=== PATIENT | female | born 1985 | race Caucasian/White ===

== ENCOUNTER 2020-04-11 15:11 | Observation (INO) | payer OTHER, SELFPAY ==
--- NOTE | ~2020-04-11 | CT_ITS ---
EXAMINATION: CT abdomen pelvis w con EXAM DATE: 04/11/2020 16:27 INDICATION: Epigastric pain. TECHNIQUE: Spiral CT of the abdomen and pelvis was performed following intravenous injection of 100 m L Omnipaque 350. Axial, coronal and sagittal images were reviewed. The dose-length product (DLP) fo r this examination was 261.43 mGy-cm. The exposure was tailored according to patient size (auto mA e xposure control), and iterative reconstruction (ASIR) was used as additional dose reduction technique . There is no prior study for comparison. FINDINGS: There are multiple large stones within the appendix, measuring up to about 12 mm in size. T he appendix is severely distended up to 1.6 cm in diameter. Tip of the appendix is just deep to the r ight inguinal canal for clinical correlation. Small amount of adjacent fluid. Small amount of The liver, spleen, adrenal glands and pancreas are unremarkable. Gallbladder is unremarkable. No bi liary obstruction. Portal and splenic veins are patent. Kidneys enhance symmetrically. There is no hydronephrosis. Uterus is anteverted and unremarkable. There is a 5.5 cm cystic right ovarian les ion most likely hemorrhagic cyst. A follow-up pelvic sonogram should be obtained to exclude less like ly possibility of endometrioma or cystic ovarian neoplasm. The bladder is unremarkable. There is no retroperitoneal or pelvic lymphadenopathy. The stomach and small bowel are unremarkable. There is expected amount of colonic stool. No free intraperitoneal gas. The heart is normal in size. There are no pericardial or pleural effusions. The lung bases are unremarkable. There are no osteoblastic or osteolytic lesions identified. IMPRESSION: 1. Multiple large appendicoliths, and severely distended appendix with small amount of adjacent fluid . Probably acute appendicitis, please clinically correlate. 2. Right adnexal cystic lesion most likely hemorrhagic cyst but a 6 week follow-up pelvic sonogram as indicated. Reviewed, dictated and finalized at location A. [employer] IMPRESSION: 1. Multiple large appendicoliths, and severely distended appendix with small am ount of adjacent fluid. Probably acute appendicitis, please clinically correlat e. 2. Right adnexal cystic lesion most likely hemorrhagic cyst but a 6 week follow -up pelvic sonogram as indicated.
[2020-04-11 15:18] VITALS: BP 129/82; PULSE 85; RESP 18; TEMP 36.6; O2SAT 100
[2020-04-11 15:45] LABS: Basophils Percent Auto 0.3 % (0.2-1.2); Eosinophils Absolute Auto 0.1 K/mm3 (0-0.3); Eosinophils Percent Auto 0.9 % (0-4.4); Hematocrit 39.2 % (37.0-47.0); Hemoglobin 13.4 g/dL (12.0-15.0); Immature Granulocyte Absolute 0.02 K/mm3 (0.00-0.031); Immature Granulocyte Percent A 0.3 % (0-0.5); Lymphocytes Absolute Auto 0.92 K/mm3 (0.9-3.2); Lymphocytes Percent Auto 11.7 % (18.3-44.2); Mean Corpuscular HGB Conc 34.2 g/dl (32-36); Mean Corpuscular Volume 87.9 fl (80-100); Mean Platelet Volume 9.3 fl (7.4-10.4); Monocytes Absolute Auto 0.5 K/mm3 (0.1-0.6); Monocytes Percent Auto 5.7 % (2.6-8.5); Neutrophils Absolute Auto 6.4 K/mm3 (1.3-6.7); Neutrophils Percent Auto 81.1 % (45.5-73.1); Platelet Count Result 183 k/mm3 (150-375); Red Blood Count 4.46 M/mm3 (4.2-5.4); Red Cell Distribution Width 12.6 % (11.5-14.5); White Blood Count 7.9 K/mm3 (4.5-10.0)
[2020-04-11 15:54] LABS: Add Urine Microscopic? YES; Appearance Urine Clear (Clear); Bacteria Urine Trace /hpf; Bilirubin Urine Negative (Negative); Blood Urine 1+ (Negative); Color Urine Yellow (Yellow); Glucose Urine UA Negative (Negative); Ketones Urine Negative (Negative); Leukocyte Esterase Ur Negative LEU/UL (Negative); Mucus Urine Few /lpf; Nitrate Urine Negative (Negative); Protein Urine Negative (Negative); Specific Grav Ur 1.023 (1.001-1.035); Squamous Epithelial Cell Urine Few /hpf (Few); Urobilinogen Urine Negative mg/dL (<2.0); WBC Urine 0-3 /hpf
[2020-04-11 15:58] LABS: Alanine Aminotransferase 16 U/L (4-35); Albumin Level 4.8 g/dL (3.5-5.1); Alkaline Phosphatase 41 U/L (38-126); Anion Gap 12 mmol/L (8-16); Aspartate Amino Transferase 25 U/L (14-36); Bilirubin,Total 2.4 mg/dL (0.2-1.3); Blood Urea Nitrogen 21 mg/dL (7-17); Calcium 9.3 mg/dL (8.4-10.2); Carbon Dioxide 26 mmol/L (22-30); Chloride 99 mmol/L (98-107); Estimated CRCL calculation 97 ml/min; Estimated Glomerular Filt Rate > 60; Glucose 118 mg/dL (65-105); Lipase 109 U/L (23-300); Potassium 3.8 mmol/L (3.4-5.0); Sodium 137 mmol/L (137-145)
--- NOTE | 2020-04-11 16:13 | ED.ABDPAIN ---
HPI - Abdominal Pain General Chief Complaint: Abdominal Pain Stated Complaint: upper abd pain, N/V Time Seen by Provider: 04/11/20 15:22 Source: patient Mode of arrival: ambulatory Limitations: no limitations History of Present Illness HPI narrative: Patient is a 34-year-old female who presents with epigastric abdominal pain that began last night persisted into the morning and ultimately presents for evaluation of continued abdominal pain patient tried Gas-X with no improvement patient notes nausea but denies emesis diarrhea urinary symptoms patient denies similar occurrence in the past has not been seen for this complaint presents in no distress does not appear uncomfortable pain is worse with position and activity Related Data Allergies Allergy/AdvReac Type Severity Reaction Status Date / Time No Known Allergies Allergy Verified 04/11/20 17:20 Review of Systems Review of Systems: All systems reviewed & are unremarkable except as noted in HPI and below PMFSH Past Medical History 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 HEAD: Normocephalic, atraumatic. EYES: PERRLA and EOMI. ENT: Nares clear, no rhinorrhea or epistaxis. Mucous membranes moist. CHEST: Clear to auscultation. No respiratory distress. No wheezes rales or rhonchi HEART: Regular rate and rhythm. No murmur heard. Normal peripheral pulses. ABDOMEN: Soft, epigastric tenderness no rebound or guarding, nondistended, normal active bowel sounds. EXTREMITIES: Normal range of motion. No edema. SKIN: Warm, dry, no rash. NEURO: No focal deficits. Alert and oriented x3. PSYCH: Normal mood and affect. Course Course Emergency Course: Patient evaluated in the emergency department found to have acute appendicitis will be placed in hospital the surgery team given antibiotics and fluids and pain medication in the emergency department Consultations Consultation #1: Spoke with Dr. Simmons who has agreed to accept the patient would like Zosyn to be given for antibiotics with n.p.o. status Date: 04/11/20 Time: 17:37 Vital Signs Vital signs: Vital Signs Temperature 97.8 F 04/11/20 15:18 Pulse Rate 85 04/11/20 15:18 Respiratory Rate 18 04/11/20 15:18 Blood Pressure 129/82 04/11/20 15:18 Pulse Oximetry 100 04/11/20 15:18 Temperature 97.8 F 04/11/20 15:18 Pulse Rate 85 04/11/20 17:22 Respiratory Rate 18 04/11/20 17:22 Blood Pressure 130/83 04/11/20 17:22 Pulse Oximetry 99 04/11/20 17:22 MDM - Abdominal Pain MDM Narrative Medical decision making narrative: Patient with acute appendicitis presented to emergency department evaluated hemodynamically stable we placed in hospital the surgical team for reevaluation in the morning Lab Data Result diagrams: 04/11/20 15:34 04/11/20 15:34 Labs: Lab Results 04/11/20 04/11/20 04/11/20 Range/Units 15:34 15:34 15:36 WBC 7.9 (4.5-10.0) K/mm3 RBC 4.46 (4.2-5.4) M/mm3 Hgb 13.4 (12.0-15.0) g/dL Hct 39.2 (37.0-47.0) % MCV 87.9 (80-100) fl MCH 30.0 (26-34) pg MCHC 34.2 (32-36) g/dl RDW 12.6 (11.5-14.5) % Plt Count 183 (150-375) k/mm3 MPV 9.3 (7.4-10.4) fl Immature Gran % (Auto) 0.3 (0-0.5) % Neut % (Auto) 81.1 H (45.5-73.1) % Lymph % (Auto) 11.7 L (18.3-44.2) % [place] % (Auto) 5.7 (2.6-8.5) % Eos % (Auto) 0.9 (0-4.4) % Baso % (Auto) 0.3 (0.2-1.2) % Lymph # (Auto) 0.92 (0.9-3.2) K/mm3 [place] # (Auto) 0.5 (0.1-0.6) K/mm3 Eos # (Auto) 0.1 (0-0.3) K/mm3 Baso # (Auto) 0.0 (0.0-0.1) K/mm3 Abs Immat Gran (auto) 0.02 (0.00-0.031) K/mm3 Absolute Neuts (auto) 6.
[2020-04-11] MEDS: FAMOTIDINE 20 MG/2 ML VIAL IV PUSH ×2 (16:32→20:09)
[2020-04-11] MEDS: LIDOCAINE HCL 2% VISC SOLN 15 ML UDC 20 ML PO (16:32)
[2020-04-11] MEDS: SODIUM CHLORIDE 0.9% IV 1,000 ML 999 ML IV CONT (16:33)
[2020-04-11] MEDS: MAG HYDROX/AL HYDROX/SIMETH 30 ML UDC PO (16:33)
[2020-04-11] MEDS: ONDANSETRON INJ 4 MG/2 ML VIAL IV PUSH ×3 (16:33→21:11)
[2020-04-11 17:22] VITALS: BP 130/83; PULSE 85; RESP 18; O2SAT 99
[2020-04-11] MEDS: MORPHINE SULFATE (*CRX) 4 MG/ML INJ IV PUSH ×2 (17:35→23:13)
--- NOTE | 2020-04-11 18:19 | ADMGEN ---
This patient, Berna Bonilla, was admitted to Medical Room 258-. Patient/family oriented to hospital policies and general routines including ID bracelet, bed and alarms, visiting hours, pain management, procedures, bathroom and other care routines, personal items, smoking policy, room service/diet, and visiting hours. Information on how to activate the Rapid Response Team has been discussed. Patient/Family are encouraged to report perceived risks to care and to ask questions if they do not understand what they are told or what they should do.
[2020-04-11 18:20] VITALS: BP 115/71; PULSE 67; RESP 16; TEMP 36.4; O2SAT 100; BMI 22.0
[2020-04-11] MEDS: LACTATED RINGERS 1,000 ML 125 ML IV CONT (18:58)
[2020-04-11] MEDS: MORPHINE SULFATE (*CRX) 2 MG/ML INJ IV PUSH (19:35)
[2020-04-11 22:00] VITALS: BP 113/65; PULSE 69; RESP 21; TEMP 36.7; O2SAT 100
[2020-04-12] VITALS (17 sets, daily range): BP systolic 98–124; BP diastolic 55–80; PULSE 76–109; RESP 12–21; TEMP 36.4–37.6; O2SAT 96–100
[2020-04-12] MEDS: MORPHINE SULFATE (*CRX) 4 MG/ML INJ IV PUSH ×3 (01:56→09:39)
[2020-04-12] MEDS: LACTATED RINGERS 1,000 ML 125 ML IV CONT (01:57)
[2020-04-12 05:29] LABS: Basophils Percent Auto 0.2 % (0.2-1.2); Hemoglobin 12.1 g/dL (12.0-15.0); Immature Granulocyte Absolute 0.06 K/mm3 (0.00-0.031); Immature Granulocyte Percent A 0.5 % (0-0.5); Lymphocytes Absolute Auto 0.57 K/mm3 (0.9-3.2); Lymphocytes Percent Auto 4.6 % (18.3-44.2); Mean Corpuscular HGB Conc 34.6 g/dl (32-36); Mean Corpuscular Hemoglobin 29.7 pg (26-34); Mean Corpuscular Volume 85.8 fl (80-100); Mean Platelet Volume 9.4 fl (7.4-10.4); Monocytes Absolute Auto 0.6 K/mm3 (0.1-0.6); Monocytes Percent Auto 5.1 % (2.6-8.5); Neutrophils Absolute Auto 11.1 K/mm3 (1.3-6.7); Neutrophils Percent Auto 89.6 % (45.5-73.1); Platelet Count Result 142 k/mm3 (150-375); Red Blood Count 4.08 M/mm3 (4.2-5.4); Red Cell Distribution Width 12.3 % (11.5-14.5); White Blood Count 12.4 K/mm3 (4.5-10.0)
[2020-04-12 05:43] LABS: Alanine Aminotransferase 13 U/L (4-35); Albumin Level 4.2 g/dL (3.5-5.1); Alkaline Phosphatase 44 U/L (38-126); Anion Gap 6 mmol/L (8-16); Aspartate Amino Transferase 18 U/L (14-36); Bilirubin,Total 3.3 mg/dL (0.2-1.3); Blood Urea Nitrogen 13 mg/dL (7-17); Calcium 8.9 mg/dL (8.4-10.2); Carbon Dioxide 27 mmol/L (22-30); Chloride 99 mmol/L (98-107); Estimated CRCL calculation 97 ml/min; Estimated Glomerular Filt Rate > 60; Glucose 116 mg/dL (65-105); Magnesium 1.4 mg/dL (1.6-2.3); Sodium 132 mmol/L (137-145)
[2020-04-12] MEDS: FAMOTIDINE 20 MG/2 ML VIAL IV PUSH (08:34)
[2020-04-12] MEDS: WITCH HAZEL 40 PADS 1 PAD TOPICAL (08:36)
--- NOTE | 2020-04-12 09:21 | PM.IMHP ---
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 She reports 1st noticing epigastric pain day night, 2 nights ago. The pain initially was in the epigastric area and mild. The pain continued to worsen and she developed nausea with vomiting. She has had a total of 6 episodes of vomiting, nonbilious and nonbloody emesis. She then presented to the emergency department for further evaluation of the abdominal pain. She reports that her upper abdominal pain has now localized to the lower abdomen, worse in the right lower quadrant. CT scan of the abdomen and pelvis showed multiple large appendicoliths with a severely distended appendix measuring up to 1.6 cm in diameter, and a small amount of adjacent fluid. Incidentally noted was a right adnexal cystic lesion, most likely hemorrhagic cyst. Initial labs showed a white blood cell count of 7900, but repeat labs this morning showed a white blood cell count of 12,400. Our service was consulted by the ED physician for surgical evaluation of acute appendicitis. The patient was admitted and started on broad-spectrum IV antibiotics and made NPO. She is now being seen on the medical floor. She reports poor appetite over the past few days and constipation. Her last bowel movement was 2 days ago, but she has not been taking her home medications for 2 days. She reports having lower abdominal pain at this time, which has not changed in severity since being admitted. Still reporting nausea. No other complaints at this time. In regards to the patient's history of Enoch-Danlos Syndrome, she reports issues with bleeding with a previous dental procedure, but had no issues with bleeding or healing with her tubal ligation. Review of Systems Review of Systems: All systems reviewed & are unremarkable except as noted in HPI and below Constitutional: Constitutional: Reports as per HPI, Denies chills, Denies fatigue, Denies fever(s), Denies headache(s) and Denies weakness Eyes: Eyes: Reports no additional eye complaints, Denies change in vision, Denies dry eyes and Denies eye pain ENT: Reports system reviewed and no additional complaints, except as documented, Denies dysphagia, Denies dizziness, Denies headache(s) and Denies hearing loss Cardiovascular: Cardiovascular: Reports no additional cardiovascular complaints, Denies chest pain, Reports rapid heart rate (hx of tachycardia, on metoprolol), Denies pedal edema, Denies leg edema, Denies lightheadedness, Denies radiating jaw, neck or arm pain and Denies dyspnea Respiratory: Respiratory: Reports no additional respiratory complaints, Denies cough, Denies hemoptysis, Denies dyspnea and Denies wheezing Gastrointestinal: Gastrointestinal: Reports as per HPI, Reports no additional gastrointestinal complaints, Reports abdominal pain (lower abd), Denies bloating, Denies change in stool character, Reports constipation, Denies dysphagia, Reports nausea, Denies odynophagia, Reports vomiting and Denies hematemesis Genitourinary: Genitourinary: Denies hematuria and Denies dysuria Musculoskeletal: Musculoskeletal: Reports no additional musculoskeletal complaints, Denies abnormal gait, Denies deformity, Denies joint swelling, Denies numbness and Denies tingling Integumentary/Breasts: Skin/Breast: Denies new lesions, Denies rash and Denies wounds Neurologic: Reports system reviewed and no additional complaints, except as documented, Denies abnormal gait, Denies dizziness, Denies headache(s), Denies numbness, Denies tingling, Denies weakness and Reports other (dizziness and syncope upon standing at times) Psychiatric: Psychiatric: Reports no additional psychiatric complaints, Reports anxiety (tx for anxiety) and Reports depression (tx for depression) [facility] Past Medic
[2020-04-12] MEDS: MAGNESIUM SULFATE 3GM/D5W100ML 3 GM/100 ML BAG IVPB (09:26)
[2020-04-12] MEDS: SODIUM CHLORIDE 0.9% IV 1,000 ML 150 ML IV CONT ×2 (09:26→22:21)
[2020-04-12] MEDS: ONDANSETRON INJ 4 MG/2 ML VIAL IV PUSH (09:39)
--- NOTE | 2020-04-12 11:19 | WPDCN ---
Assessment and Plan Assessment and plan (1) Ovarian cyst: Code(s): N83.209 - Unspecified ovarian cyst, unspecified side Status: Acute (2) Abdominal pain: Code(s): R10.9 - Unspecified abdominal pain Status: Acute Assessment and Plan: This patient is a 34-year-old female with a likely appendicitis and a hemorrhagic ovarian cyst. Dr. Simmons has decided to operate on this patient and remove her appendix due to the symptoms and abnormal appearance of the organ. I will join Dr. Simmons to examine the cyst and likely remove the cyst. I discussed the situation with the patient. She would like the cyst removed. This may be contributing to her pain given the blood contained within the cyst. She understands the risks, benefits, and alternatives. She has completed the informed consent process is ready to proceed. HPI Data of Consult Date/Time: 04/12/20 11:19 Requesting Physician: Howie Simmons MD Primary Care Provider: Tereza Newman, Consult Narrative Narrative: Berna Bonilla is a 34 year old female, multi parous, with abdominal pain and ovarian cyst that was viewed on ultrasound. She has had worsening abdominal pain for 2 days. Focus of the pain is in the lower abdomen. She has been seen by General surgery. Findings on ultrasound include a 5-1/2 cm hemorrhagic left ovarian cyst and a distended appendix. Patient symptoms included nausea and vomiting for 2 days. She has an elevated white count. She denies any vaginal bleeding. She is status post tubal ligation. She denies any hormonal contraception. Review of Systems Constitutional: Constitutional: Reports no additional constitutional complaints, Denies fatigue, Denies headache(s), Denies lethargy and Denies weakness Eyes: Eyes: Reports no additional eye complaints, Denies blurry vision and Denies photophobia ENT: Reports as per HPI, Denies headache(s) and Denies neck pain Cardiovascular: Cardiovascular: Denies chest pain, Denies diaphoresis, Denies leg edema, Denies palpitations and Denies dyspnea Respiratory: Respiratory: Denies hemoptysis, Denies dyspnea and Denies wheezing Gastrointestinal: Gastrointestinal: Denies abdominal pain, Denies melena, Denies bloating, Denies hematochezia, Denies nausea and Denies vomiting Genitourinary: Genitourinary: Reports no additional female genitourinary complaints Musculoskeletal: Musculoskeletal: Denies joint swelling, Denies neck pain, Denies numbness and Denies stiffness Neurologic: Denies Abnormal speech present, Denies confusion, Denies headache(s), Denies numbness and Denies weakness Psychiatric: Psychiatric: Denies anxiety, Denies confusion, Denies depression, Denies homicidal ideation and Denies suicidal ideation Endocrine: Endocrine: Denies fatigue and Denies palpitations Allergic/Immunologic: Allergic/Immunologic: Denies wheezing PMFSH Past Medical History Medical History Depression with anxiety EDS (Enoch-Danlos syndrome) History of kidney stones Singh disease Surgical History Surgical History History of tonsillectomy History of tubal ligation Laparoscopic History of wisdom tooth extraction Family History Family History Mother Ovarian cancer Hyperlipidemia Gallbladder disease Father Hyperlipidemia Malignant neoplasm of prostate Hypertension Social History Social History Social History: The patient lives at home with her boyfriend and 6 children. She is a stay at home mother. She would like her mother, Josie Bonilla, to be her medical decision maker if needed. Smoking status: Never smoker Second hand tobacco smoke exposure: No Alcohol intake: current Alcohol use details: Rare - few times per year. Substance use: never Living ar
--- NOTE | 2020-04-12 11:37 | PC.NURSE ---
Report called to Reji CRAIG Preop.
--- NOTE | 2020-04-12 13:08 | PC.NURSE ---
TO OR via bed.
[2020-04-12 13:17] LABS: INR 1.3; Prothrombin Time 16.8 Seconds (11.1-14.7)
[2020-04-12 13:18] LABS: Partial Thromboplastin Time 34.6 SECONDS (22.3-36.8)
[2020-04-12 13:21] LABS: Magnesium 2.4 mg/dL (1.6-2.3)
--- NOTE | 2020-04-12 13:28 | WPDANESEPPF ---
Anes - Initial Pre Proc Eval Procedure: Operation Date: 04/12/20 14:30 Proposed Procedures p Laparoscopic Appendectomy - Howie Simmons MD Date/Time: 04/12/20 13:28 Surgeon: Howie Simmons MD Pre Op Diagnosis: acute appendicitis Patient Data Age: 34 Gender: F Height: 1.73 m Weight: 65.7 kg Last Vital Signs Temp 37.4 C 04/12/20 13:17 Pulse 108 H 04/12/20 13:17 Resp 16 04/12/20 13:17 BP 124/73 04/12/20 13:17 Pulse Ox 100 04/12/20 13:17 Allergies Allergy/AdvReac Type Severity Reaction Status Date / Time amoxicillin Allergy Diarrhea Verified 04/11/20 18:30 Home Medications Medication Instructions Recorded Confirmed Type Daily Fiber 1 tab-cap PO BID 04/11/20 04/11/20 History Daily Multiple For Women 1 tab-cap PO DAILY 04/11/20 04/11/20 History amitriptyline 25 mg PO HS 04/11/20 04/11/20 History clonazepam 0.5 mg PO PRN PRN 04/11/20 04/11/20 History ferrous sulfate 65 mg PO BID 04/11/20 04/11/20 History magnesium 400 mg PO DAILY 04/11/20 04/11/20 History meloxicam 15 mg PO DAILY 04/11/20 04/11/20 History metoprolol succinate 25 mg PO DAILY 04/11/20 04/11/20 History Laboratory Tests 04/11/20 04/11/20 04/11/20 15:34 15:34 15:36 WBC 7.9 K/mm3 K/mm3 (4.5-10.0) RBC 4.46 M/mm3 M/mm3 (4.2-5.4) Hgb 13.4 g/dL g/dL (12.0-15.0) Hct 39.2 % % (37.0-47.0) MCV 87.9 fl fl (80-100) MCH 30.0 pg pg (26-34) MCHC 34.2 g/dl g/dl (32-36) RDW 12.6 % % (11.5-14.5) Plt Count 183 k/mm3 k/mm3 (150-375) MPV 9.3 fl fl (7.4-10.4) Immature Gran % (Auto) 0.3 % % (0-0.5) Neut % (Auto) 81.1 % H % (45.5-73.1) Lymph % (Auto) 11.7 % L % (18.3-44.2) [place] % (Auto) 5.7 % % (2.6-8.5) Eos % (Auto) 0.9 % % (0-4.4) Baso % (Auto) 0.3 % % (0.2-1.2) Lymph # (Auto) 0.92 K/mm3 K/mm3 (0.9-3.2) [place] # (Auto) 0.5 K/mm3 K/mm3 (0.1-0.6) Eos # (Auto) 0.1 K/mm3 K/mm3 (0-0.3) Baso # (Auto) 0.0 K/mm3 K/mm3 (0.0-0.1) Abs Immat Gran (auto) 0.02 K/mm3 K/mm3 (0.00-0.031) Absolute Neuts (auto) 6.4 K/mm3 K/mm3 (1.3-6.7) Absolute Nucleated RBC 0.0 K/mm3 K/mm3 (0.0-0.012) Nucleated RBC % 0.0 % % (0.0-0.2) PT INR APTT Sodium 137 mmol/L mmol/L (137-145) Potassium 3.8 mmol/L mmol/L (3.4-5.0) Chloride 99 mmol/L mmol/L (98-107) Carbon Dioxide 26 mmol/L mmol/L (22-30) Anion Gap 12 mmol/L mmol/L (8-16) BUN 21 mg/dL H mg/dL (7-17) Creatinine 0.70 mg/dL mg/dL (0.7-1.0) Estim Creat Clear Calc 97 ml/min ml/min Estimated GFR > 60 (59 - ) Glucose 118 mg/dL H mg/dL (65-105) Calcium 9.3 mg/dL mg/dL (8.4-10.2) Magnesium Total Bilirubin 2.4 mg/dL H mg/dL (0.2-1.3) AST 25 U/L U/L (14-36) ALT 16 U/L U/L (4-35) Alkaline Phosphatase 41 U/L U/L (38-126) Total Protein 8.0 g/dL g/dL (6.3-8.2) Albumin 4.8 g/dL g/dL (3.5-5.1) Lipase 109 U/L U/L (23-300) Urine Color Yellow (Yellow) Urine Appearance Clear (Clear) Urine pH 6.0 (5.0-9.0) Ur Specific [place] 1.023 (1.001-1.035) Urine Protein Negative mg/dL mg/dL (Negative) Urine Glucose (UA) Negative mg/dL mg/dL (Negative) Urine Ketones Negative mg/dL mg/dL (Negative) Ur Blood (Man) 1+ H (Negative) Urine Nitrate Negative (Negative) Urine Bilirubin Negative (Negative) Urine Urobilinogen Negative mg/dL mg/dL (<2.0) Leukocyte Esterase Rfl Negative ALBERT/UL ALBERT/UL (Negative) Urine RBC 6-10 /hpf H /hpf (0-2) Urine WBC 0-3
[2020-04-12] MEDS: LACTATED RINGERS 1,000 ML 30 ML IV CONT ×2 (13:33→16:09)
[2020-04-12] MEDS: fentaNYL CITRATE INJ (*CRX) 100 MCG/2 ML VIAL 50 MCG IV PUSH (13:47)
--- NOTE | 2020-04-12 14:06 | WPDHPUPDATE1 ---
History and Physical Update Update Date/Time: 04/12/20 14:06 History and Physical has been reviewed, including an updated exam of the patient. There are NO changes in the patient's condition. Risks, benefits, and alternatives have been discussed and questions answered. Patient agrees to proceed with procedure.
--- NOTE | 2020-04-12 14:37 | WPDHPUPDATE1 ---
History and Physical Update Update Date/Time: 04/12/20 14:37 To perform right ovarian cystectomy History and Physical has been reviewed, including an updated exam of the patient. There are NO changes in the patient's condition. Risks, benefits, and alternatives have been discussed and questions answered. Patient agrees to proceed with procedure.
[2020-04-12] MEDS: BUPIVACAINE/EPINEPHRINE 0.5% 10 ML VIAL 20 ML INFILTRATE (15:02)
--- NOTE | 2020-04-12 15:30 | SUR.OPER ---
PATIENT ASKED IF POSITION NEEDS TO GO TO LITHOTOMY ARE THERE ANY POSITIONAL OR JOINT CONCERNS. PATIENT STATED NO ISSUE HOWEVER JOINTS MAY MAKE A POP NOISE BUT THIS IS NORMAL FOR HER NOT A DISLOCATION. REVIEWED WITH PATIENT IN PRE OP.
--- NOTE | 2020-04-12 15:44 | SUR.OPER ---
RIGHT OVARIAN CYSTOTOMY PER DR POLLACK UNDER DR OCHOA DIRECTION IN OR. DR RAM CONSULTING.
--- NOTE | 2020-04-12 15:50 | WPDCN ---
HPI Data of Consult Date/Time: 04/12/20 15:50 This is an intraoperative consult. Requesting Physician: Howie Simmons MD Primary Care Provider: Tereza Newman, Consult Narrative Narrative: Berna Bonilla is a 34 year old female with an appendicitis and a ovarian cyst. Dr. Simmons took this patient to the operating room for appendectomy. She had a purulent fluid within the endometrial cavity, viral was to examine the ovarian cyst. I believe the ovary incision should only be drained today. Opening the cyst and removing the capsule along with the corpus luteum cyst would invite adhesions on the ovary which may require surgery in the future. The ovary was enlarged. The ovary appeared to be about 8 cm. There was a 5-6 cm ovarian cyst with serous fluid that was drained out by Dr. Simmons. He open the cyst using cautery and scissors. This was my recommendation. He completed the appendectomy laparoscopically. [facility] Past Medical History Medical History Depression with anxiety EDS (Enoch-Danlos syndrome) History of kidney stones Singh disease Surgical History Surgical History History of tonsillectomy History of tubal ligation Laparoscopic History of wisdom tooth extraction Family History Family History Mother Ovarian cancer Hyperlipidemia Gallbladder disease Father Hyperlipidemia Malignant neoplasm of prostate Hypertension Social History Social History Social History: The patient lives at home with her boyfriend and 6 children. She is a stay at home mother. She would like her mother, Josie Bonilla, to be her medical decision maker if needed. Smoking status: Never smoker Second hand tobacco smoke exposure: No Alcohol intake: current Alcohol use details: Rare - few times per year. Substance use: never Living arrangements: with family Occupation/Education: other Gender identity (if verbalized by the patient): Female Sexual Orientation (if Verbalized by the Patient): Straight or Heterosexual Spiritual care concerns: No Meds Home Medications and Allergies Home Medications Medication Instructions Recorded Confirmed Type Daily Fiber 1 tab-cap PO BID 04/11/20 04/11/20 History Daily Multiple For Women 1 tab-cap PO DAILY 04/11/20 04/11/20 History amitriptyline 25 mg PO HS 04/11/20 04/11/20 History clonazepam 0.5 mg PO PRN PRN 04/11/20 04/11/20 History ferrous sulfate 65 mg PO BID 04/11/20 04/11/20 History magnesium 400 mg PO DAILY 04/11/20 04/11/20 History meloxicam 15 mg PO DAILY 04/11/20 04/11/20 History metoprolol succinate 25 mg PO DAILY 04/11/20 04/11/20 History Allergies Allergy/AdvReac Type Severity Reaction Status Date / Time amoxicillin Allergy Diarrhea Verified 04/11/20 18:30 Vital Signs Vital Signs - 24 hr 04/11/20 17:22 04/11/20 18:20 04/11/20 22:00 Temperature 97.6 F 98.1 F Pulse Rate 85 67 69 Respiratory Rate 18 16 21 H Blood Pressure 130/83 115/71 113/65 Pulse Oximetry 99 100 100 04/12/20 02:00 04/12/20 06:00 04/12/20 08:36 Temperature 97.7 F 98.5 F Pulse Rate 94 98 Respiratory Rate 20 21 H 18 Blood Pressure 118/71 106/60 Pulse Oximetry 99 100 98 04/12/20 10:00 04/12/20 13:17 Temperature 99.5 F 99.3 F Pulse Rate 106 H 108 H Respiratory Rate 18 16 Blood Pressure 117/63 124/73 Pulse Oximetry 98 100 Results Labs CBC & Chem 7: 04/12/20 05:18 04/12/20 05:18 Labs: Short CBC 04/12/20 Range/Units 05:18 WBC 12.4 H (4.5-10.0) K/mm3 Hgb 12.1 (12.0-15.0) g/dL Hct 35.0 L (37.0-47.0) % Plt Count 142 L (150-375) k/mm3 BMP 04/11/20 04/12/20 15:34 05:18 Sodium 137 132 L Potassium 3.8 4.0 Chloride 99 99 Carbon Dioxide 26 27 BUN 21 H 13 D Creatinin
--- NOTE | 2020-04-12 16:29 | PM.PROC ---
Procedure Note - Detailed Date of procedure: 04/12/20 Pre-op diagnosis: acute appendicitis 2. cyst of the right ovary Post-op diagnosis: other (1. acute gangrenous appendicitis without perforation 2. corpus luteum cyst of the ovary(right).) Procedure performed: 1. Laparoscopic Appendectomy 2. laparoscopic right ovarian cystotomy. Description of procedure: The patient was seen again in the Holding Room. The risks, benefits, complications, treatment options, and expected outcomes were discussed with the patient and/or family. The possibilities of reaction to medication, pulmonary aspiration, perforation of viscus, bleeding, recurrent infection, finding a normal appendix, the need for additional procedures, failure to diagnose a condition, and creating a complication requiring transfusion or operation were discussed. There was concurrence with the proposed plan and informed consent was obtained. The site of surgery was properly noted/marked. The patient was taken to Operating Room, and a time out was preformed which identified this as the proper patient, and the procedure verified as laparoscopic appendectomy, possible open. The patient was placed in the supine position and general anesthesia was induced, along with placement of orogastric tube, SCD hose, and a Lambert catheter. The abdomen was prepped and draped in a sterile fashion. Because the patient had had previous surgeries the Cortez cannula technique was utilized. To do this I made a incision in the umbilical area and carried this down to the midline fascia. Under direct vision the midline fascia was incised and the peritoneum entered under direct vision after placing 2 sutures of 0 Vicryl in the fascia on either side of midline. The Cortez cannula was then slid into place into the peritoneum under direct vision. The pneumoperitoneum was then established to steady pressure of 14 mm Hg. A 12 mm laparoscopic port was placed through a transverse suprapubic incision. An additional 5 mm cannula was then placed in the left lower quadrant of the abdomen at a level half way between the umbilicus and pubic symphysis under direct vision. A careful evaluation of the entire abdomen was carried out. There was noted to be a Tongue of Omentum densley adhered to the distal 1/2 of the inflammed appeendix. The two were then together adherent to the under side of the anterior abdominal wall about 4 cm above the level of the pubic bone. The patient was placed in Trendelenburg and left lateral decubitus position. The small intestines were retracted in the cephalad and left lateral direction away from the pelvis and right lower quadrant. The patient was found to have an enlarged and inflamed appendix that was extending medially and covered with omentum. There was no evidence of perforation. Before further dissection I carefully lifted the uterus anteriorly and we inspected the Rt. ovary. It indeed had a 5 cm cyst which appeared to involve the inferior medial wall of the otherwise normal appering Rt. ovary. Dr. Dodson who came to the room just after I had the trocars in place felt that it appeared to be a Corpues Luteum cyst. The appendix was carefully dissected. Once it was free a 45 mm ethicon endogastroentestinal stapler with a bowel load was able to be placed across the base of the appendix at it's junction with the cecum. The appendix was then divided at its base using this 45 mm stapler with a 3.5 mm bowel wall load. Minimal appendiceal stump was left in place. There was no evidence of bleeding, leakage, or complication after division of the appendix at its junction with the cecum.. The appendix was then placed in an endobag which had been brought through the 12 mm suprapubic port site. The appendix and the bag were then extracted through this larger port site in the suprapubic position. Even though precautions were taken there was a little leakage of apparent purulent fluid from the bag as I pulled it through the supra-pubi
--- NOTE | 2020-04-12 17:00 | PC.NURSE ---
Returned from OR via bed. Voiding without difficulty,
[2020-04-12] MEDS: HYDROcodone/acetaminophen (*CRX) 7.5-325 MG TABLET 1 TAB PO (19:54)
[2020-04-12] MEDS: SENNA/DOCUSATE SODIUM TABLET 2 TAB PO (22:21)
[2020-04-13 02:00] VITALS: BP 100/58; PULSE 78; RESP 20; TEMP 36.4; O2SAT 98
[2020-04-13 05:25] LABS: Hematocrit 31.7 % (37.0-47.0); Hemoglobin 10.8 g/dL (12.0-15.0); Mean Corpuscular HGB Conc 34.1 g/dl (32-36); Mean Corpuscular Hemoglobin 30.6 pg (26-34); Mean Corpuscular Volume 89.8 fl (80-100); Mean Platelet Volume 9.6 fl (7.4-10.4); Platelet Count Result 144 k/mm3 (150-375); Red Blood Count 3.53 M/mm3 (4.2-5.4); Red Cell Distribution Width 12.8 % (11.5-14.5)
[2020-04-13 05:41] LABS: Alanine Aminotransferase 11 U/L (4-35); Albumin Level 3.4 g/dL (3.5-5.1); Alkaline Phosphatase 42 U/L (38-126); Anion Gap 5 mmol/L (8-16); Aspartate Amino Transferase 19 U/L (14-36); Bilirubin,Total 1.9 mg/dL (0.2-1.3); Blood Urea Nitrogen 11 mg/dL (7-17); Calcium 8.4 mg/dL (8.4-10.2); Carbon Dioxide 26 mmol/L (22-30); Chloride 105 mmol/L (98-107); Estimated CRCL calculation 97 ml/min; Estimated Glomerular Filt Rate > 60; Glucose 112 mg/dL (65-105); Potassium 4.1 mmol/L (3.4-5.0); Sodium 136 mmol/L (137-145)
[2020-04-13 06:38] VITALS: BP 103/57; PULSE 97; RESP 21; TEMP 36.4; O2SAT 100
--- NOTE | 2020-04-13 07:16 | WPDANESPN ---
Anes - Prog Note Post-Op Date/Time: 04/13/20 07:17 Cardiovascular status: normal Respiratory status: normal Airway patency: baseline Mental status: baseline Post-Op hydration status: normal Vital Signs: Last Vital Signs Temp 97.6 F 04/13/20 06:38 Pulse 97 04/13/20 06:38 Resp 21 H 04/13/20 06:38 BP 103/57 L 04/13/20 06:38 Pulse Ox 100 04/13/20 06:38 Pain Score (VAS): 03/28 I/O: Intake & Output 04/12/20 04/12/20 04/13/20 15:59 23:59 07:59 Intake Total 1150 1150 550 Output Total 250 2795 1050 Balance 900 -991 -500 Laboratory Tests 04/13/20 05:09 04/13/20 05:09 04/12/20 04/12/20 04/13/20 12:19 12:19 05:09 WBC 15.0 H RBC 3.53 L Hgb 10.8 L Hct 31.7 L MCV 89.8 MCH 30.6 MCHC 34.1 RDW 12.8 Plt Count 144 L MPV 9.6 PT 16.8 H INR 1.3 APTT 34.6 Sodium Potassium Chloride Carbon Dioxide Anion Gap BUN Creatinine Estim Creat Clear Calc Estimated GFR Glucose Calcium Magnesium 2.4 H Total Bilirubin Direct Bilirubin AST ALT Alkaline Phosphatase Total Protein Albumin 04/13/20 05:09 WBC RBC Hgb Hct MCV MCH MCHC RDW Plt Count MPV PT INR APTT Sodium 136 L Potassium 4.1 Chloride 105 Carbon Dioxide 26 Anion Gap 5 L BUN 11 Creatinine 0.70 Estim Creat Clear Calc 97 Estimated GFR > 60 Glucose 112 H Calcium 8.4 Magnesium Total Bilirubin 1.9 H Direct Bilirubin 0.0 AST 19 ALT 11 Alkaline Phosphatase 42 Total Protein 6.0 L Albumin 3.4 L Post-procedural complaints: none Patient Feedback: Patient satisfied with anesthetic care.
[2020-04-13] MEDS: SODIUM CHLORIDE 0.9% IV 1,000 ML 150 ML IV CONT (08:24)
[2020-04-13] MEDS: HYDROcodone/acetaminophen (*CRX) 7.5-325 MG TABLET 1 TAB PO (08:40)
--- NOTE | 2020-04-13 09:43 | PM.DS ---
DS: Admitting Diagnosis Admitting Diagnosis Admitting Diagnosis: Acute uncomplicated appendicitis 2. Bleeding external hemorrhoids 3. History depression 4. Right ovarian cyst 5. 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 Patient noted to have this and is doing well without treatment. (5) Acute appendicitis: Qualifiers: Acute appendicitis type: with localized peritonitis Appendicitis abscess presence: without abscess Appendicitis gangrene presence: with gangrene Appendicitis perforation presence: without perforation Qualified Code(s): K35.31 - Acute appendicitis with localized peritonitis and gangrene, without perforation Code(s): K35.80 - Unspecified acute appendicitis Status: Acute Assessment and Plan: Doing well now postop day 1 status post laparoscopic appendectomy DS: Summary Hospital Course Reason for hospitalization: Acute gangrenous appendicitis without perforation Hospital Course: Patient had uneventful hospital course. She was initially admitted and placed on antibiotics. She did not improve much the 1st 12 hours and therefore after thorough discussion and with OB consultation we proceeded to the OR after her choice to proceed with a appendectomy. Because she had a right ovarian cyst Dr. alvarado consulted and did intraoperative consult. He directed me to go ahead and drain the cyst on the right ovary. The fluid was clear and he felt that it was most likely a corpus luteum cyst. He will follow her up as an outpatient. Postop day 1. She is doing well tolerating a diet and ready to go home. She is tolerating pain well on p.o. medicines. She will resume all her normal home medications except for her meloxicam and she will wait till Sunday after she is done with her pain medication to take this again. Status at Discharge Cognitive/behavioral status at discharge: normal Functional status at discharge: independent ambulation Overall status at discharge: patient is back to baseline Time Spent with Patient Time attestation: Total time spent providing and/or coordinating discharge services: Time spent: Less than 30 minutes Specific discharge activities: Okay to shower Okay to walk as much as she feels comfortable No lifting greater than 25 lb x 2 weeks until she sees me in the office. Patient to take her temperature once a day or if she feels like she has a fever. She should call the office and let us know if she consistently runs a temperature greater than 100? F. Exam Const: General: cooperative, healthy appearing, comfortable, no acute distress, alert and awake Orientation/consciousness: patient oriented x3 HENMT: Head: normal to inspection Mouth: Yes moist mucous membranes Eyes: General: appearance normal, both eyes and all related structures Neck: Neck: normal visual inspection Chest: Chest palpation & inspection: normal inspection of the chest Resp: Effort & Inspection: normal respiratory effort Auscultation: clear to auscultation bilaterally Cardio: Jugular venous distension: no JVD Rate: regular rate Rhythm: regular rhythm GI: Inspection: normal to inspection and incision (Clean and dry without drainage or erythema) GI Palp: No Tenderness to palpation present (GI) Auscultation: normal bowel sounds Rectal Exam: deferred Neuro: General: patient oriented x3 and moves all extremities Speech: normal speech Extrem: General: luciana
== END 2020-04-13 11:04 | disposition home or self-care (01) ==
LOC: ANHED 17:44 → ANH2MED 17:58
PROVIDERS: Emergency Medicine; Emergency Medicine Emergency Medical Services; Admitting Provider Surgery; Emergency Provider Emergency Medicine; PCP Internal Medicine; Visit Provider Surgery
PROC: 0DTJ4ZZ Resection of Appendix, Percutaneous Endoscopic Approach (ICD-10-PCS; CPT 44970; principal; 2020-04-12 14:30)
PROC: (CPT 49320; 2020-04-12 14:30)
DX: K35.31 Acute appendicitis with localized peritonitis and gangrene, without perforation (principal); N83.11 Corpus luteum cyst of right ovary; Q79.60 Ehlers-Danlos syndrome, unspecified; F41.8 Other specified anxiety disorders; K64.4 Residual hemorrhoidal skin tags
CPT/HCPCS: 44970; 58662; 36415; 74177; 80048; 80053; 80076; 81001; 81025; 83690; 83735; 85025; 85027; 85610; 85730; 88304; 96361; 96365; 96366; 96367; 96375; 96376; 99285; A9270; G0378; G0379; J0131; J0330; J1100; J2250; J2270; J2405; J2543; J2704; J2710; J3010; J3475; J7030; J7120; Q9967; Q9968

== ENCOUNTER 2020-08-19 14:21 | Outpatient (CLI) | payer OTHER, SELFPAY ==
[2020-08-19 14:34] LABS: Basophils Percent Auto 0.4 % (0.2-1.2); Eosinophils Absolute Auto 0.2 K/mm3 (0-0.3); Eosinophils Percent Auto 3.3 % (0-4.4); Hematocrit 33.8 % (37.0-47.0); Immature Granulocyte Absolute 0.03 K/mm3 (0.00-0.031); Immature Granulocyte Percent A 0.6 % (0-0.5); Lymphocytes Absolute Auto 1.21 K/mm3 (0.9-3.2); Lymphocytes Percent Auto 25.2 % (18.3-44.2); Mean Corpuscular HGB Conc 32.5 g/dl (32-36); Mean Corpuscular Hemoglobin 28.9 pg (26-34); Mean Corpuscular Volume 88.7 fl (80-100); Monocytes Absolute Auto 0.4 K/mm3 (0.1-0.6); Monocytes Percent Auto 7.5 % (2.6-8.5); Platelet Count Result 278 k/mm3 (150-375); Red Blood Count 3.81 M/mm3 (4.2-5.4); Red Cell Distribution Width 13.1 % (11.5-14.5); White Blood Count 4.8 K/mm3 (4.5-10.0)
== END 2020-08-19 14:22 | disposition home or self-care (01) ==
LOC: ANHLAB 14:23
PROVIDERS: PCP Internal Medicine; Visit Provider Obstetrics & Gynecology
DX: N93.9 Abnormal uterine and vaginal bleeding, unspecified (principal)
CPT/HCPCS: 36415; 85025

== ENCOUNTER 2020-09-28 02:19 | Day surgery (SDC) | payer OTHER, SELFPAY ==
[2020-09-24 17:45] VITALS: BMI 21.3
--- NOTE | 2020-09-27 15:19 | P.PNAN_ITS ---
Anes - Initial Pre Proc Eval Procedure: Operation Date: 09/28/20 08:30 Proposed Procedures p Hysteroscopy with Waleska Endometrial Ablation - Camilo Dodson MD Date/Time: 09/27/20 15:19 Surgeon: Camilo Dodson MD Pre Op Diagnosis: menorrhaghia Patient Data Age: 34 Gender: F Height: 1.74 m Weight: 64.5 kg Allergies Allergy/AdvReac Type Severity Reaction Status Date / Time amoxicillin Allergy Severe Diarrhea Verified 09/28/20 06:39 Home Medications Medication Instructions Recorded Confirmed Type Daily Fiber 1 tab-cap PO BID 04/11/20 09/28/20 History Daily Multiple For Women 1 tab-cap PO DAILY 04/11/20 09/28/20 History amitriptyline 25 mg PO HS 04/11/20 09/28/20 History clonazepam 0.5 mg PO PRN PRN 04/11/20 09/28/20 History ferrous sulfate 65 mg PO BID 04/11/20 09/28/20 History magnesium 400 mg PO DAILY 04/11/20 09/28/20 History meloxicam 15 mg PO DAILY 04/11/20 09/28/20 History metoprolol succinate 25 mg PO DAILY 04/11/20 09/28/20 History witch piper [Preparation H (Witch 1 pad TOPICAL PRN PRN #48 ea 04/13/20 09/28/20 Rx Piper)] albuterol sulfate 2 puff INHALATION Q6H PRN 09/24/20 09/28/20 History Patient hx anesthesia problems: none Family hx anesthesia problems: none PMFSH Past Medical History Medical History (Updated 09/27/20 @ 15:19 by Mariano Null DO) Anxiety Corpus luteum cyst of right ovary Depression Depression with anxiety EDS (Enoch-Danlos syndrome) External hemorrhoid, bleeding History of kidney stones DANK (obstructive sleep apnea) Singh disease Surgical History Surgical History (Updated 04/28/20 @ 08:30 by Emilia Harvey CMA) History of tonsillectomy History of tubal ligation Laparoscopic History of wisdom tooth extraction S/P laparoscopic appendectomy Family History Family History Mother Ovarian cancer Hyperlipidemia Gallbladder disease Father Hyperlipidemia Malignant neoplasm of prostate Hypertension Social History Social History (Reviewed 04/28/20 @ 08:29 by Emilia Harvey [facility]) Social History: The patient lives at home with her boyfriend and 6 children. She is a stay at home mother. She would like her mother, Josie Bonilla, to be her medical decision maker if needed. Smoking status: Never smoker Tobacco type: e-cigarettes/vaping Second hand tobacco smoke exposure: No Alcohol intake: current Drinks per week: 1 Alcohol use details: Rare - few times per year. Substance use: never Substance use type: marijuana Living arrangements: with family Gender identity (if verbalized by the patient): Female Spiritual care concerns: No Anes - Eval Final PreProcedure Day of Procedure 09/27/20 15:19 Patient weight: normal Heart: regular rate and rhythm Lungs: clear to auscultation and normal air movement Airway: Mallampati scale class 1 Neurological: alert and oriented Last oral intake: >/= 8 hours ASA classification: III Emergent: no Anesthetic plan: proceed Anesthesia type and monitoring: general ETT and standard monitoring Informed Consent: The patient's anesthetic plan and its attendant risks and benefits were discussed with the patient/family/POA. Questions were solicited and answers provided to the satisfaction of the gretel
[2020-09-28 06:34] VITALS: BP 114/77; PULSE 76; RESP 18; TEMP 36.7; O2SAT 100
[2020-09-28] MEDS: ACETAMINOPHEN 500 MG TABLET 1000 MG PO (06:49)
[2020-09-28] MEDS: LACTATED RINGERS 1,000 ML 30 ML IV CONT (06:57)
--- NOTE | 2020-09-28 07:27 | WPDHPUPDATE1 ---
History and Physical Update Update Date/Time: 09/28/20 07:27 History and Physical has been reviewed, including an updated exam of the patient. There are NO changes in the patient's condition. Risks, benefits, and alternatives have been discussed and questions answered. Patient agrees to proceed with procedure.
--- NOTE | 2020-09-28 07:55 | SUR.PREOP ---
Dr. Null notified that patient did not take her 25mg metoprolol this AM. med was last taken yesterday morning. Heart rate baseline was mid 70s.
[2020-09-28] MEDS: KETOROLAC 30 MG/ML VIAL (*BKC) IV PUSH (08:55)
[2020-09-28 09:03] VITALS: BP 111/67; PULSE 67; RESP 16; O2SAT 100
--- NOTE | 2020-09-28 09:12 | W.PM.PROC2 ---
Procedure Note - Detailed Date of Procedure 09/28/20 Pre-op Diagnosis menorrhaghia Post-op Diagnosis same Procedure Performed endometrial ablation with hysteroscopy. Surgeon Camilo Dodson MD Anesthesia MAC Indications Severe menorrhagia Findings Normal vulva vagina and cervix. Normal endometrium. Description of Procedure The patient was taken to the operating room. She was prepped and draped in the dorsal lithotomy position after induction of mac anesthesia. A speculum was placed in the vagina. Cervix grasped with a tenaculum. The cervix was dilated to about 1 cm. The hysteroscope was inserted. The above findings were noted. Measurements were taken of the uterus and cervix. The uterine length was then entered into the hand piece of the Waleska device. The device was inserted into the intrauterine cavity. The array of the device was expanded. The balloon cuff was inflated. A good seal was achieved. The energy and safety cycles were initiated and completed. The array was collapsed and the instrument was withdrawn after deflating the balloon cuff. Hysteroscope was reinserted. Above findings were noted. The hysteroscope was removed. The patient tolerated the procedure well. The speculum and tenaculum were removed. She was taken to recovery in stable condition. Sponge lap and needle counts were correct x2. Estimated Blood Loss 15 Pathology yes Complications No immediate complications Condition stable Disposition same day
[2020-09-28 09:30] VITALS: BP 132/66; PULSE 62; RESP 20
[2020-09-28 09:50] VITALS: BP 132/60; PULSE 64; RESP 20
== END 2020-09-28 10:00 | disposition home or self-care (01) ==
PROVIDERS: PCP Internal Medicine; Visit Provider Obstetrics & Gynecology
PROC: 0U5B8ZZ Destruction of Endometrium, Via Natural or Artificial Opening Endoscopic (ICD-10-PCS; CPT 58563; principal; 2020-09-28 08:30)
DX: N92.0 Excessive and frequent menstruation with regular cycle (principal); Q79.60 Ehlers-Danlos syndrome, unspecified; G47.33 Obstructive sleep apnea (adult) (pediatric); F41.8 Other specified anxiety disorders; F17.290 Nicotine dependence, other tobacco product, uncomplicated; F12.90 Cannabis use, unspecified, uncomplicated
CPT/HCPCS: 58563; A9270; J1100; J1885; J2250; J2405; J2704; J3010; J7030; J7120

== ENCOUNTER 2020-10-14 07:27 | Outpatient (CLI) | payer OTHER, SELFPAY ==
--- NOTE | ~2020-10-14 | US_ITS ---
EXAMINATION: US pelvic complete EXAM DATE: 10/14/2020 08:24 INDICATION: Pelvic pain. TECHNIQUE: Pelvic transabdominal sonogram was performed. There are multiple grayscale and Doppler im ages available for interpretation. Correlation is made to CT abdomen pelvis 04/11/2020. FINDINGS: Uterus measures 10.8 x 6.8 x 8.3 cm, with anechoic fluid pocket either within endometrial canal or within the endometrium measuring 2.6 cm in thickness. Somewhat poorly delineated endometrium but measuring fluid pocket and endometrium thickness is 3.6 cm. Both measurements considered abnorma l. There was no evidence of this fluid pocket on prior CT in March. Differential diagnosis includes obstructed cervical canal, endometrial or cervical cancer, endometrial hyperplasia. Right adnexa: The ovary measures 3.5 x 1.8 x 1.7 cm cm and is morphologically normal. Ovarian vascula r flow confirmed. Please note that on CT scan in March there was a right ovarian cystic lesion boy uring 5.5 cm which has resolved, probably was a hemorrhagic cyst. Left adnexa: The ovary measures 8.2 x 5.1 x 7.1 cm, contains complex cystic mass, fishnet appearance is most consistent with hemorrhagic cyst, measuring 7.4 x 4.5 x 5.5 cm. Ovarian vascular flow confirm ed peripheral to this lesion. IMPRESSION: 1. Abnormal endometrium with fluid pocket between endometrial or endometrial canal sizable fluid poc ket. Histologic correlation may be indicated. 2. New left-sided complex cystic lesion appearance most consistent with hemorrhagic cyst. Consider 6 week follow-up pelvic sonogram. 3. Resolution of the previously seen cystic lesion in March. Reviewed, dictated and finalized at location B. IMPRESSION: 1. Abnormal endometrium with fluid pocket between endometrial or endometrial c anal sizable fluid pocket. Histologic correlation may be indicated. 2. New left-sided complex cystic lesion appearance most consistent with hemorr hagic cyst. Consider 6 week follow-up pelvic sonogram. 3. Resolution of the previously seen cystic lesion in March.
== END 2020-10-14 07:28 | disposition home or self-care (01) ==
LOC: ANHIMG 07:28
PROVIDERS: PCP Internal Medicine; Visit Provider Obstetrics & Gynecology
DX: R10.2 Pelvic and perineal pain (principal)
CPT/HCPCS: 76856

== ENCOUNTER 2020-10-20 11:45 | Outpatient (CLI) | payer OTHER, SELFPAY ==
[2020-10-20 12:50] LABS: Basophils Percent Auto 0.6 % (0.2-1.2); Eosinophils Absolute Auto 0.1 K/mm3 (0-0.3); Eosinophils Percent Auto 2.6 % (0-4.4); Hematocrit 31.3 % (37.0-47.0); Hemoglobin 9.9 g/dL (12.0-15.0); Immature Platelet Fraction Pct 3.5 % (0.9-11.2); Lymphocytes Absolute Auto 0.78 K/mm3 (0.9-3.2); Lymphocytes Percent Auto 25.1 % (18.3-44.2); Mean Corpuscular HGB Conc 31.6 g/dl (32-36); Mean Corpuscular Hemoglobin 28.1 pg (26-34); Mean Corpuscular Volume 88.9 fl (80-100); Mean Platelet Volume 9.9 fl (7.4-10.4); Monocytes Absolute Auto 0.3 K/mm3 (0.1-0.6); Neutrophils Percent Auto 63.7 % (45.5-73.1); Platelet Count Result 158 k/mm3 (150-375); Red Blood Count 3.52 M/mm3 (4.2-5.4); Red Cell Distribution Width 12.9 % (11.5-14.5); White Blood Count 3.1 K/mm3 (4.5-10.0)
== END 2020-10-20 11:46 | disposition home or self-care (01) ==
PROVIDERS: PCP Internal Medicine; Visit Provider Obstetrics & Gynecology
DX: N93.9 Abnormal uterine and vaginal bleeding, unspecified (principal)
CPT/HCPCS: 36415; 85025; 85055

== ENCOUNTER 2020-12-29 10:25 | Outpatient (CLI) | payer OTHER, SELFPAY ==
--- NOTE | 2020-12-29 10:00 | ECG_ITS ---
Measurements Intervals [place] Rate: 73 P: 32 [place]: 120 QRS: 64 QRSD: 94 T: 38 QT: 378 QTc: 419 Interpretive Statements SINUS RHYTHM NORMAL ECG Electronically Signed On 12-29-2020 11:06:17 CDT by Russell Fuentes D.O.
[2020-12-29 11:21] LABS: Hematocrit 36.9 % (37.0-47.0); Hemoglobin 11.8 g/dL (12.0-15.0)
== END 2020-12-29 10:26 | disposition home or self-care (01) ==
LOC: ANHSURGERY 10:28
PROVIDERS: Anesthesiology; PCP Internal Medicine; Visit Provider Obstetrics & Gynecology
DX: Z01.818 Encounter for other preprocedural examination (principal); D64.9 Anemia, unspecified; N92.0 Excessive and frequent menstruation with regular cycle
CPT/HCPCS: 36415; 85014; 85018; 86850; 86900; 86901; 93005

== ENCOUNTER 2021-01-04 01:54 | Day surgery (SDC) | payer OTHER, SELFPAY ==
[2020-12-28 09:14] VITALS: BMI 19.9
--- NOTE | 2021-01-03 11:58 | WPDANESEPPF ---
Anes - Initial Pre Proc Eval Procedure: Operation Date: 01/04/21 07:30 Proposed Procedures p Total Laparoscopic Assisted Hysterectomy - Camilo Dodson MD Date/Time: 01/03/21 11:58 Surgeon: Camilo Dodson MD Pre Op Diagnosis: menorrhaghia Patient Data Age: 35 Gender: F Height: 1.75 m Weight: 61.24 kg Allergies Allergy/AdvReac Type Severity Reaction Status Date / Time amoxicillin Allergy Severe Diarrhea Verified 12/28/20 09:12 Home Medications Medication Instructions Recorded Confirmed Type Daily Fiber 1 tab-cap PO BID 04/11/20 12/28/20 History Daily Multiple For Women 1 tab-cap PO DAILY 04/11/20 12/28/20 History amitriptyline 25 mg PO HS 04/11/20 12/28/20 History clonazepam 0.5 mg PO PRN PRN 04/11/20 12/28/20 History ferrous sulfate 65 mg PO BID 04/11/20 12/28/20 History magnesium 400 mg PO DAILY 04/11/20 12/28/20 History meloxicam 15 mg PO DAILY 04/11/20 12/28/20 History metoprolol succinate 25 mg PO DAILY 04/11/20 12/28/20 History albuterol sulfate 2 puff INHALATION Q6H PRN 09/24/20 12/28/20 History Patient hx anesthesia problems: none Family hx anesthesia problems: none Results Review: All pre-operative results and documents have been reviewed as part of the pre-operative evaluation. [facility] Past Medical History Medical History (Updated 09/27/20 @ 15:19 by Mariano Null DO) Anxiety Corpus luteum cyst of right ovary Depression Depression with anxiety EDS (Enoch-Danlos syndrome) External hemorrhoid, bleeding History of kidney stones DANK (obstructive sleep apnea) Singh disease Surgical History Surgical History (Updated 04/28/20 @ 08:30 by Emilia Harvey CMA) History of tonsillectomy History of tubal ligation Laparoscopic History of wisdom tooth extraction S/P laparoscopic appendectomy Family History Family History Mother Ovarian cancer Hyperlipidemia Gallbladder disease Father Hyperlipidemia Malignant neoplasm of prostate Hypertension Social History Social History Social History: The patient lives at home with her boyfriend and 6 children. She is a stay at home mother. She would like her mother, Josie Bonilla, to be her medical decision maker if needed. Smoking status: Never smoker Tobacco type: e-cigarettes/vaping Second hand tobacco smoke exposure: No Alcohol intake: current Drinks per week: 1 Alcohol use details: RARE Substance use: current Substance use type: marijuana Other substance usage details: SMOKE AND EDIBLES Last use: 12/28/20 Living arrangements: with family Gender identity (if verbalized by the patient): Female Sexual Orientation (if Verbalized by the Patient): Straight or Heterosexual Spiritual care concerns: No Anes - Eval Final PreProcedure Day of Procedure 01/03/21 11:58 Patient weight: thin Heart: regular rate and rhythm Lungs: clear to auscultation and normal air movement Airway: Mallampati scale class 1 Neurological: alert and oriented Last oral intake: >/= 8 hours ASA classification: III Emergent: no Anesthetic plan: proceed Anesthesia type and monitoring: general ETT and standard monitoring Results Review: All pre-operative results and documents have been reviewed as part of the pre-operative evaluation. Informed Consent: The patient's anesthetic plan and its attendant risks and benefits were discussed with the patient/family/POA. Questions were solicited and answers provided to the satisfaction of the patient/family/POA.
[2021-01-04] VITALS (11 sets, daily range): BP systolic 103–141; BP diastolic 60–87; PULSE 58–90; RESP 10–18; TEMP 36.6–37.5; O2SAT 96–100
[2021-01-04] MEDS: ACETAMINOPHEN 500 MG TABLET 1000 MG PO (06:55)
[2021-01-04] MEDS: LACTATED RINGERS 1,000 ML 30 ML IV CONT ×2 (07:00→09:48)
[2021-01-04] MEDS: KETOROLAC 15 MG/ML VIAL (*BKC) IV PUSH (07:08)
--- NOTE | 2021-01-04 07:15 | WPDHPUPDATE1 ---
History and Physical Update Update Date/Time: 01/04/21 07:15 History and Physical has been reviewed, including an updated exam of the patient. There are NO changes in the patient's condition. Risks, benefits, and alternatives have been discussed and questions answered. Patient agrees to proceed with procedure.
[2021-01-04] MEDS: ceFAZolin 2 GM/D5W 50 ML 2 GM/50 ML BAG IVPB (07:27)
--- NOTE | 2021-01-04 09:36 | W.PM.PROC2 ---
Procedure Note - Detailed Date of Procedure 01/04/21 Pre-op Diagnosis menorrhaghia, pelvic pain Post-op Diagnosis same Procedure Performed Total laparoscopic hysterectomy. Surgeon Camilo Dodson MD Anesthesia general Indications Severe menometrorrhagia, pelvic pain. Findings Moderate sized uterus, normal appearing ovaries and absent fallopian tube. Description of Procedure This patient was taken to the operating room. She was prepped and draped in the dorsal lithotomy position after induction of general anesthesia. The uterine manipulator and Allie cup were placed. This was done with a speculum and tenaculum. The speculum was placed. The cervix was grasped with a tenaculum. The stay sutures were placed at 3 and 9:00 a.m.. The stay sutures of 0 Vicryl were brought through the appropriately sized Allie cup. The tip of the NEREYDA manipulator was placed in the intrauterine cavity. The cup was slid into place around the cervix and into the fornices. It was locked into place. The sutures were then wrapped around the handle and tied under tension. A 5 mm skin incision was made in the left upper quadrant the abdomen. A 5 mm trocar was inserted into the intrauterine cavity under direct visualization of the scope. Pneumoperitoneum was achieved. A left lower quadrant 11 mm incision was made with scalpel. An 11 mm trocar was inserted into the anterior abdominal cavity under direct visualization the scope. A 5 mm infraumbilical incision was made with a scalpel and a 5 mm trocar was inserted the intra-abdominal cavity under direct visualization of the scope. Bilateral ureteral lysis was performed. This was done from the pelvic brim down to the uterine artery. This was done with careful sharp and blunt dissection. The bilateral suspensory ligament the ovary was cauterized and transected with LigaSure cautery. The bilateral fallopian tubes were cauterized and transected with LigaSure cautery.. In a stepwise fashion along the lateral aspects of the uterus the round ligament and broad ligaments were cauterized transected down to the level of the uterine arteries. A bladder flap was created in the bladder was moved distally to the end of the cervix and over the Allie cup. The bilateral uterine arteries were cauterized and transected. Colpotomy was then performed. In a circumferential fashion the vagina was transected using unipolar cautery. The incision was made down on the Allie cup. The uterus and cervix were taken out through the vagina. A pneumo occluder was placed in the vagina. The vaginal cuff was closed with a 0 V lock suture in a running fashion. The pelvis was irrigated with copious amounts antibiotic irrigation. The ureters were again examined and found to be intact and flowing freely under the uterine arteries into the bladder. The bladder was intact. It was examined directly. The vagina was irrigated with Betadine solution after removal of the Pneumo occluder. The patient was taken to recovery room. She was stable condition. Sponge lap and needle counts were correct x2. Estimated Blood Loss 150 Drains Yes Packing No Pathology yes Complications No immediate complications Condition stable Disposition floor
[2021-01-04] MEDS: fentaNYL CITRATE INJ (*CRX) 100 MCG/2 ML VIAL 25 MCG IV PUSH ×2 (10:25→10:29)
--- NOTE | 2021-01-04 10:50 | PC.NURSE ---
This patient, Berna Bonilla, was received from PACU on 01/04/21 at 1050. Patient/family oriented to unit policies and routines
[2021-01-04] MEDS: KETOROLAC 30 MG/ML VIAL (*BKC) IV PUSH ×2 (10:58→17:44)
[2021-01-04] MEDS: DEXTROSE 5%/0.45% SOD CHL 1,000 ML 125 ML IV CONT (10:58)
[2021-01-04] MEDS: HYDROcodone/acetaminophen (*CRX) 10-325 MG TABLET 1 TAB PO ×2 (13:28→21:07)
[2021-01-04] MEDS: clonazePAM (*CRX) 0.5 MG TABLET PO (13:29)
[2021-01-04] MEDS: ONDANSETRON INJ 4 MG/2 ML VIAL IV PUSH (14:06)
[2021-01-04] MEDS: SIMETHICONE 80 MG TAB.CHEW PO (16:33)
[2021-01-04] MEDS: AMITRIPTYLINE HCL 25 MG TABLET PO (21:03)
[2021-01-04] MEDS: clonazePAM (*CRX) 0.5 MG TABLET 1 MG PO (21:04)
[2021-01-04] MEDS: IBUPROFEN 600 MG TABLET PO (21:07)
[2021-01-05 04:00] VITALS: BP 120/67; PULSE 93; RESP 18; TEMP 36.7; O2SAT 100
[2021-01-05] MEDS: HYDROcodone/acetaminophen (*CRX) 10-325 MG TABLET 1 TAB PO ×2 (04:01→09:32)
[2021-01-05] MEDS: IBUPROFEN 600 MG TABLET PO (04:01)
[2021-01-05 05:16] LABS: Basophils Percent Auto 0.4 % (0.2-1.2); Eosinophils Absolute Auto 0.1 K/mm3 (0-0.3); Eosinophils Percent Auto 0.8 % (0-4.4); Hematocrit 33.2 % (37.0-47.0); Hemoglobin 10.8 g/dL (12.0-15.0); Immature Granulocyte Absolute 0.03 K/mm3 (0.00-0.031); Immature Granulocyte Percent A 0.4 % (0-0.5); Lymphocytes Absolute Auto 1.13 K/mm3 (0.9-3.2); Lymphocytes Percent Auto 13.3 % (18.3-44.2); Mean Corpuscular HGB Conc 32.5 g/dl (32-36); Mean Corpuscular Hemoglobin 28.3 pg (26-34); Mean Corpuscular Volume 87.1 fl (80-100); Mean Platelet Volume 9.9 fl (7.4-10.4); Monocytes Absolute Auto 0.5 K/mm3 (0.1-0.6); Monocytes Percent Auto 6.1 % (2.6-8.5); Neutrophils Absolute Auto 6.7 K/mm3 (1.3-6.7); Platelet Count Result 167 k/mm3 (150-375); Red Blood Count 3.81 M/mm3 (4.2-5.4); Red Cell Distribution Width 14.6 % (11.5-14.5); White Blood Count 8.5 K/mm3 (4.5-10.0)
[2021-01-05 07:10] VITALS: BP 116/76; PULSE 78; RESP 18; TEMP 36.8
[2021-01-05 09:32] VITALS: PULSE 76
[2021-01-05] MEDS: clonazePAM (*CRX) 0.5 MG TABLET PO (09:32)
[2021-01-05] MEDS: METOPROLOL SUCCINATE EXT REL 25 MG TABCR PO (09:32)
[2021-01-05] MEDS: SIMETHICONE 80 MG TAB.CHEW PO (09:37)
--- NOTE | 2021-01-05 12:24 | PM.GYNPNOP ---
SPLICING SUPERVISOR - A/P Postoperative Procedures: Procedures Operation Date: 01/04/21 07:30 Actual Procedure Side Surgeon p Total Laparoscopic Assisted Hysterectomy Bilateral Camilo Dodson MD Postoperative day: 1 Postoperative status: doing well Postoperative plan: see orders Time Spent With Patient Time: Total time spent is greater than 50% in coordination of care (as documented) at patient's floor/unit and/or counseling patient: Time with patient: 15 - 25 minutes SPLICING SUPERVISOR- PN:Subj Post-Op Subjective Date/time seen: 01/05/21 12:24 Subjective: patient reports feeling better, patient has no complaints and pain is well controlled Exam Const: General: healthy appearing, comfortable and no acute distress Resp: Auscultation: clear to auscultation bilaterally, no rales, no rhonchi and no wheezes Cardio: Rate: regular rate Heart sounds: no click, no murmurs and no rubs GI: Inspection: non-distended Auscultation: normal bowel sounds Extrem: General: normal to inspection, no pedal edema and no calf tenderness SPLICING SUPERVISOR - PN: Obj Data Vital Signs Vital Signs: Vital Signs - 24 hr 01/04/21 16:15 01/04/21 20:00 01/04/21 23:18 Temperature 98.8 F 97.8 F 98.5 F Pulse Rate 90 60 72 Respiratory Rate 18 18 18 Blood Pressure 127/77 141/87 H 117/62 Pulse Oximetry 99 100 98 01/05/21 04:00 01/05/21 07:10 01/05/21 09:32 Temperature 98.1 F 98.2 F Pulse Rate 93 78 76 Respiratory Rate 18 18 Blood Pressure 120/67 116/76 Pulse Oximetry 100 Intake/Output Intake/Output: Intake & Output 01/02/21 01/03/21 01/04/21 01/05/21 23:59 23:59 23:59 23:59 Intake Total 950 Output Total 950 Balance 0 Meds/Results Medications: Active Medications Generic Name Dose Route Start Last Admin Trade Name Freq PRN Reason Stop Dose Admin Hydrocodone Bitart/Acetaminophen 1 tab 01/04/21 10:45 Hydrocodone/Acetaminophen (*Crx) 5-325 Mg Tablet PO Q3H PRN Pain Rated 5 or Less Hydrocodone Bitart/Acetaminophen 1 tab 01/04/21 10:45 01/05/21 09:32 Hydrocodone/Acetaminophen (*Crx) 10-325 Mg Tablet PO 1 tab Q3H PRN Administration Pain Rated 6 or Greater Albuterol 2 puff 01/04/21 10:45 Albuterol Sulfate (*Sp) Aerosol 1 Puff INHALATION Q6H PRN Shortness Of Breath Amitriptyline HCl 25 mg 01/04/21 21:00 01/04/21 21:03 Amitriptyline Hcl 25 Mg Tablet PO 25 mg HS EDWARD Administration Clonazepam 0.5 mg 01/04/21 12:00 01/05/21 09:32 Clonazepam (*Crx) 0.5 Mg Tablet PO 0.5 mg 0900,1200 EDWARD Administration Clonazepam 1 mg 01/04/21 21:00 01/04/21 21:04 Clonazepam (*Crx) 0.5 Mg Tablet PO 1 mg HS EDWARD Administration Dextrose/Sodium Chloride 1,000 mls @ 125 mls/hr 01/04/21 10:45 01/05/21 06:15 Dextrose 5% Sodium Chloride 0.45% IV CONT Not Given .Q8H EDWARD Ibuprofen 600 mg 01/04/21 10:45 01/05/21 04:01 Ibuprofen 600 Mg Tablet PO 600 mg Q6H PRN Administration Cramping Ketorolac Tromethamine 30 mg 01/04/21 10:45 01/04/21 17:44 Ketorolac 30 Mg/Ml Vial (*Bkc) IV PUSH 01/09/21 10:44 30 mg Q6H PRN Administration Pain Rated 4-6 Metoprolol Succinate 25 mg 01/05/21 09:00 01/05/21 09:32 Metoprolol Succinate Ext Rel 25 Mg Tabcr PO 25 mg DAILY EDWARD Administration Naloxone HCl 0.1 mg 01/04/21 10:45 Naloxone Hcl 0.4 Mg/Ml Vial IV PUSH Q2M PRN Respiratory rate less than 10 Ondansetron HCl 4 mg 01/04/21 10:45 01/04/21 14:06 Ondansetron Inj 4 Mg/2 Ml Vial IV PUSH 4 mg Q6H PRN Administration Nausea And Vomiting Simethicone 80 mg 01/04/21 13:25 01/05/21 09:37 Simethicone 80 Mg Tab.Chew PO 80 mg QID PRN Administration Gas Discomfort Labs CBC & Chem 7: 01/05/21 03:54 Labs: Laboratory Results - last 24 hr 01/05/21 03:54 WBC 8.5 RBC 3.81 L Hgb 10.8 L Hct 33.2 L MCV 87.1 MCH 28.3 MCHC 32.5 RDW 14.6 H Plt Count 167 MPV 9.9 Immature Gran % (Auto) 0.4 Neut %
== END 2021-01-05 12:40 | disposition home or self-care (01) ==
LOC: ANHSURGERY 06:23 → ANHOB2 10:35
PROVIDERS: PCP Internal Medicine; Visit Provider Obstetrics & Gynecology
PROC: 0UT9FZZ Resection of Uterus, Via Natural or Artificial Opening With Percutaneous Endoscopic Assistance (ICD-10-PCS; CPT 58570; principal; 2021-01-04 07:30)
DX: N92.1 Excessive and frequent menstruation with irregular cycle (principal); R10.2 Pelvic and perineal pain; N80.0 Endometriosis of uterus; N83.02 Follicular cyst of left ovary; F41.8 Other specified anxiety disorders; Q79.60 Ehlers-Danlos syndrome, unspecified; G47.33 Obstructive sleep apnea (adult) (pediatric); I49.8 Other specified cardiac arrhythmias; F12.90 Cannabis use, unspecified, uncomplicated
CPT/HCPCS: 58570; 58662; 36415; 85025; 88305; 88307; 99199; A9270; J0690; J1100; J1170; J1885; J2250; J2405; J2704; J2710; J3010; J7030; J7120

== ENCOUNTER 2021-01-22 22:43 | Inpatient (IN) | payer OTHER, SELFPAY ==
--- NOTE | ~2021-01-22 | XR_ITS ---
EXAMINATION: XR chest 1V portable DATE: 01/23/2021 01:32 INDICATION: Fever TECHNIQUE: frontal view of the chest was obtained. COMPARISON: None FINDINGS: The lungs are clear with no focal airspace opacities, pulmonary edema, pleural effusion or pneumothor ax. The cardiomediastinal silhouette is normal. Visualized bones and soft tissues are unremarkable. IMPRESSION: 1. No acute cardiopulmonary disease. Reviewed, dictated and finalized at location A. L TRUCK DRIVER
--- NOTE | ~2021-01-22 | CT_ITS ---
EXAMINATION: CT abdomen pelvis w con DATE: 01/23/2021 00:23 INDICATION: Abdominal pain. Fever. TECHNIQUE: Computed tomography (CT) of the abdomen and pelvis was performed with 100 mL Omnipaque-350 intravenous contrast. Automated exposure control and iterative reconstruction technique were employe d. The dose-length product was 296.27 mGy-cm. COMPARISON: 04/11/2020 FINDINGS: Lung bases are clear. Heart size is normal. No pericardial or pleural effusion. Gallbladder, bilatera l adrenal glands and bilateral kidneys are normal. There is enlargement of the portal and splenic vei ns which along with mild splenomegaly measuring 13.4 cm critical length suggest portal venous hyperte nsion. There is also however increased prominence of the hepatic veins particularly in the right hepa tic lobe which could be seen with tricuspid regurgitation, right heart failure or other cause of elev ated right heart pressure. Decreased attenuation extending along the portal veins, unclear whether th is represents mild intrahepatic third ductal dilation or symmetric mild periportal edema. Common bile duct remains normal in caliber. Interval change of prior appendectomy with surgical clips near the t ip the cecum. No bowel obstruction. 3.4 cm left adnexal cyst. Postoperative change of interval hyster ectomy with small amount of free fluid in the pelvis. There is hyperemia surrounding the vaginal cuff with small amount of gas and fluid in the vaginal vault. No discrete abscess or free intraperitoneal gas. Right adnexa is unremarkable. No pathologically enlarged abdominal or pelvic lymphadenopathy. B ones are unremarkable. IMPRESSION: 1. Postoperative changes of recent hysterectomy with small amount of gas and stool within the vaginal vault, hyperemia in the parametrial vessels and small amount of nonloculated free fluid in the pelvi s. No abscess. 2. 3.4 cm left adnexal cyst. 3. Mild intrahepatic biliary ductal dilation versus nonspecific mild periportal edema. Correlate with liver function tests. 4. Enlargement of the main and splenic veins and mild splenomegaly suggestive of portal venous hypert ension. 5. Enlargement of the hepatic veins which could be due to tricuspid regurgitation, right heart failur e or other cause of elevated right heart pressures. Reviewed, dictated and finalized at location A. ER IMPRESSION: 1. Postoperative changes of recent hysterectomy with small amount of gas and st ool within the vaginal vault, hyperemia in the parametrial vessels and small am ount of nonloculated free fluid in the pelvis. No abscess. 2. 3.4 cm left adnexal cyst. 3. Mild intrahepatic biliary ductal dilation versus nonspecific mild periportal edema. Correlate with liver function tests. 4. Enlargement of the main and splenic veins and mild splenomegaly suggestive o f portal venous hypertension. 5. Enlargement of the hepatic veins which could be due to tricuspid regurgitati on, right heart failure or other cause of elevated right heart pressures.
[2021-01-22 22:50] VITALS: BP 126/70; PULSE 118; RESP 16; TEMP 39.2; O2SAT 100
--- NOTE | 2021-01-22 23:19 | ED.FEVER ---
HPI - Fever General Chief Complaint: Fever Stated Complaint: post hysterectomy fever pain Time Seen by Provider: 01/22/21 22:57 Source: RN notes reviewed History of Present Illness HPI Narrative: Patient presents emergency department from home for fever. Patient states that today she developed a fever up to 105 degrees at home. She states she last took Tylenol at approximately noon. States she has a history of having a hysterectomy on January [address] Dodson. She states that over the past week she has been having increasing abdominal pain is been in the [place] emergency department twice both on Sunday and yesterday she states she had a CT scan performed there yesterday did not show any acute infection she denies any chest pain or shortness of breath denies any cough but does note that she has had nausea and vomiting denies any diarrhea patient denies having any rhinorrhea sore throat Related Data Home Medications Medication Instructions Recorded Confirmed Daily Fiber 1 tab-cap PO BID 04/11/20 01/04/21 Daily Multiple For Women 1 tab-cap PO DAILY 04/11/20 01/04/21 amitriptyline 25 mg PO HS 04/11/20 01/04/21 clonazepam 0.5 mg PO PRN PRN 04/11/20 01/04/21 ferrous sulfate 65 mg PO BID 04/11/20 01/04/21 magnesium 400 mg PO DAILY 04/11/20 01/04/21 meloxicam 15 mg PO DAILY 04/11/20 01/04/21 metoprolol succinate 25 mg PO DAILY 04/11/20 01/04/21 albuterol sulfate 2 puff INHALATION Q6H PRN 09/24/20 01/04/21 azelastine INTRANASAL 01/04/21 fluticasone propionate INTRANASAL 01/04/21 Allergies Allergy/AdvReac Type Severity Reaction Status Date / Time amoxicillin Allergy Severe Diarrhea Verified 01/22/21 23:23 Review of Systems Review of Systems: Gen.: Reports fever ENT: Denies congestion Respiratory: Denies shortness of breath or cough CV: Denies chest pain or palpitations GI: See HPI denies burning, urgency, frequency or hematuria Musculoskeletal: Denies back pain or muscle pain Neuro: Denies numbness, tingling, weakness or focal weakness Skin: Denies rash Except as documented, all other systems reviewed and negative PMFSH Past Medical History Medical History Anxiety Corpus luteum cyst of right ovary Depression Depression with anxiety EDS (Enoch-Danlos syndrome) External hemorrhoid, bleeding History of kidney stones DANK (obstructive sleep apnea) Singh disease Surgical History Surgical History (Updated 04/28/20 @ 08:30 by Emilia Harvey CMA) History of tonsillectomy History of tubal ligation Laparoscopic History of wisdom tooth extraction S/P laparoscopic appendectomy Family History Family History Mother Ovarian cancer Hyperlipidemia Gallbladder disease Father Hyperlipidemia Malignant neoplasm of prostate Hypertension Social History Social History Social History: The patient lives at home with her boyfriend and 6 children. She is a stay at home mother. She would like her mother, Josie Bonilla, to be her medical decision maker if needed. Smoking status: Never smoker Tobacco type: e-cigarettes/vaping Second hand tobacco smoke exposure: No Alcohol intake: current Drinks per week: 1 Alcohol use details: RARE Substance use: current Substance use type: marijuana Other substance usage details: SMOKE AND EDIBLES Last use: 12/28/20 Gender identity (if verbalized by the patient): Female Sexual Orientation (if Verbalized by the Patient): Straight or Heterosexual Spiritual care concerns: No Exam Narrative: APPEARANCE: No acute distress, nontoxic, resting in bed HEENT: Normocephalic, atraumatic, OMM RESPIRATORY: No respiratory distress, clear to auscultation bilaterally with no rhonchi wheezing or rales CARDIOVASCULAR: RRR s murmur ABDOMINAL: Soft nondistended diffusely tender palpation no rebound or guardin
[2021-01-22 23:30] VITALS: BP 119/79; PULSE 102; RESP 13; O2SAT 100
[2021-01-22] MEDS: SODIUM CHLORIDE 0.9% IV 1,000 ML 999 ML IV CONT (23:31)
[2021-01-22 23:44] LABS: Basophils Percent Auto 0.3 % (0.2-1.2); Eosinophils Percent Auto 0.2 % (0-4.4); Hematocrit 32.6 % (37.0-47.0); Hemoglobin 10.8 g/dL (12.0-15.0); Immature Granulocyte Absolute 0.03 K/mm3 (0.00-0.031); Immature Granulocyte Percent A 0.5 % (0-0.5); Lymphocytes Absolute Auto 0.21 K/mm3 (0.9-3.2); Lymphocytes Percent Auto 3.4 % (18.3-44.2); Mean Corpuscular HGB Conc 33.1 g/dl (32-36); Mean Corpuscular Hemoglobin 28.9 pg (26-34); Mean Corpuscular Volume 87.2 fl (80-100); Mean Platelet Volume 9.4 fl (7.4-10.4); Monocytes Absolute Auto 0.2 K/mm3 (0.1-0.6); Monocytes Percent Auto 3.4 % (2.6-8.5); Neutrophils Absolute Auto 5.7 K/mm3 (1.3-6.7); Neutrophils Percent Auto 92.2 % (45.5-73.1); Platelet Count Result 165 k/mm3 (150-375); Red Blood Count 3.74 M/mm3 (4.2-5.4); Red Cell Distribution Width 14.1 % (11.5-14.5); White Blood Count 6.2 K/mm3 (4.5-10.0)
[2021-01-23] VITALS (11 sets, daily range): BP systolic 103–123; BP diastolic 58–78; PULSE 78–108; RESP 14–20; TEMP 36.1–38.9; O2SAT 97–100
[2021-01-23 00:01] LABS: Alanine Aminotransferase 12 U/L (4-35); Albumin Level 4.2 g/dL (3.5-5.1); Alkaline Phosphatase 65 U/L (38-126); Anion Gap 9 mmol/L (8-16); Aspartate Amino Transferase 15 U/L (14-36); Bilirubin,Total 1.8 mg/dL (0.2-1.3); Blood Urea Nitrogen 19 mg/dL (7-17); Calcium 9.4 mg/dL (8.4-10.2); Carbon Dioxide 26 mmol/L (22-30); Chloride 101 mmol/L (98-107); Estimated CRCL calculation 107 ml/min; Estimated Glomerular Filt Rate > 60; Glucose 125 mg/dL (65-110); Lactic Acid Reflex 0.9 mmol/L (0.7-2.1); Potassium 3.5 mmol/L (3.4-5.0); Sodium 136 mmol/L (137-145)
[2021-01-23 00:07] LABS: Partial Thromboplastin Time 33.7 SECONDS (22.3-36.8)
--- NOTE | 2021-01-23 00:19 | PC.NURSE ---
Pt back to room from Ct at this time
--- NOTE | 2021-01-23 00:45 | PC.NURSE ---
Pt requesting pain medication. EDP notified
--- NOTE | 2021-01-23 00:49 | PC.NURSE ---
Called lab to follow up on pending lab results. States they will result labs as soon as possible
[2021-01-23 00:51] LABS: INR 1.3; Prothrombin Time 15.6 Seconds (11.1-14.7)
[2021-01-23] MEDS: SODIUM CHLORIDE 0.9% IV 1,000 ML 999 ML IV CONT (00:57)
[2021-01-23] MEDS: MORPHINE SULFATE (*CRX) 2 MG/ML INJ IV PUSH (00:57)
[2021-01-23 01:03] LABS: Add Urine Microscopic? YES; Appearance Urine Cloudy (Clear); Bilirubin Urine Negative (Negative); Blood Urine 1+ (Negative); Color Urine Amber (Yellow); Glucose Urine UA Negative (Negative); Ketones Urine 1+ mg/dL (Negative); Leukocyte Esterase Ur Negative LEU/UL (Negative); Nitrate Urine Negative (Negative); Protein Urine 1+ mg/dL (Negative)
[2021-01-23 01:04] LABS: Specific Grav Ur 1.031 (1.001-1.035)
[2021-01-23] MEDS: IBUPROFEN 600 MG TABLET PO (01:49)
[2021-01-23] MEDS: metroNIDAZOLE 500 MG/ISO 100ML 500 MG/100 ML BAG 100 MG IVPB ×4 (02:01→20:36)
[2021-01-23] MEDS: SODIUM CHLORIDE 0.9% IV 1,000 ML 125 ML IV CONT ×2 (03:30→13:57)
--- NOTE | 2021-01-23 03:36 | PC.NURSE ---
This patient, Berna Bonilla, was admitted to [facility] Surg Room 326-01. Patient/family oriented to hospital policies and general routines including ID bracelet, bed and alarms, visiting hours, pain management, procedures, bathroom and other care routines, personal items, smoking policy, room service/diet, and visiting hours. Information on how to activate the Rapid Response Team has been discussed. Patient/Family are encouraged to report perceived risks to care and to ask questions if they do not understand what they are told or what they should do.
--- NOTE | 2021-01-23 12:17 | PM.IMHP ---
H&P: HPI History of Present Illness Date/Time: 01/23/21 12:17 This patient is a 35-year-old female who presents emergency department with abdominal pain and fever. She was 19 days postop from a total laparoscopic hysterectomy. She had been seen in the ER at an outside institution twice this week. No acute findings were observed at those visits. A CT of the abdomen and pelvis today revealed signs of peritonitis. No abscess that was visible. She denies any chest pain or shortness of breath. She did report some nausea, vomiting, fever and chills. She denies any vaginal bleeding or steve pus from the vagina. Chief Complaint: Fever, abdominal pain Review of Systems Review of Systems: All systems reviewed & are unremarkable except as noted in HPI and below Constitutional: Constitutional: Denies chills, Denies fatigue, Denies fever(s) and Denies weakness Eyes: Eyes: Denies blurry vision, Denies change in vision, Denies loss of peripheral vision, Denies loss of vision, Denies other visual disturbances and Denies eye pain ENT: Denies vertigo, Denies dizziness, Denies hearing loss, Denies mouth pain, Denies nasal obstruction, Denies neck mass and Denies neck pain Cardiovascular: Cardiovascular: Denies chest pain, Denies diaphoresis, Denies syncope, Denies leg edema and Denies dyspnea Respiratory: Respiratory: Denies chest congestion, Denies cough, Denies hemoptysis, Denies dyspnea and Denies wheezing Gastrointestinal: Gastrointestinal: Denies abdominal pain, Denies constipation, Denies diarrhea, Denies nausea and Denies vomiting Genitourinary: Genitourinary: Denies hematuria, Denies change in libido, Denies nocturia, Denies genital lesions, Denies flank pain and Denies urinary urgency Musculoskeletal: Musculoskeletal: Denies abnormal gait, Denies back pain, Denies myalgias, Denies arthralgias, Denies joint swelling, Denies muscle weakness and Denies neck pain Integumentary/Breasts: Skin/Breast: Denies swelling, Denies breast pain, Denies breast mass, Denies dry skin, Denies nipple discharge, Denies unusual bruising and Denies jaundice Neurologic: Denies Neuro-related abnormal movements, Denies Abnormal speech present, Denies abnormal gait, Denies behavioral changes, Denies confusion, Denies vertigo, Denies dizziness, Denies syncope, Denies loss of vision, Denies memory loss, Denies convulsions and Denies weakness Psychiatric: Psychiatric: Denies abnormal sleep pattern, Denies behavioral changes, Denies change in libido, Denies confusion, Denies depression, Denies anhedonia and Denies memory loss Endocrine: Endocrine: Reports no additional endocrine complaints, Denies change in libido and Denies fatigue Hematologic/Lymphatic: Hematologic/Lymphatic: Reports no additional hematologic/lymphatic complaints Allergic/Immunologic: Allergic/Immunologic: Reports no additional allergic/immunologic complaints and Denies wheezing PMFSH Past Medical History Medical History Anxiety Corpus luteum cyst of right ovary Depression Depression with anxiety EDS (Enoch-Danlos syndrome) External hemorrhoid, bleeding History of kidney stones DANK (obstructive sleep apnea) Singh disease Surgical History Surgical History (Updated 04/28/20 @ 08:30 by Emilia Harvey CMA) History of tonsillectomy History of tubal ligation Laparoscopic History of wisdom tooth extraction S/P laparoscopic appendectomy Family History Family History Mother Ovarian cancer Hyperlipidemia Gallbladder disease Father Hyperlipidemia Malignant neoplasm of prostate Hypertension Social History Social History Social History: The patient lives at home with her boyfriend and 6 children. She is a stay at home mother. She would like her mother, Josie Bonilla, to be her medical decision maker if needed. Smoking s
[2021-01-23 13:06] LABS: Basophils Percent Auto 0.5 % (0.2-1.2); Eosinophils Percent Auto 0.6 % (0-4.4); Hematocrit 28.4 % (37.0-47.0); Hemoglobin 9.4 g/dL (12.0-15.0); Immature Granulocyte Absolute 0.02 K/mm3 (0.00-0.031); Immature Granulocyte Percent A 0.3 % (0-0.5); Lymphocytes Absolute Auto 0.44 K/mm3 (0.9-3.2); Lymphocytes Percent Auto 6.9 % (18.3-44.2); Mean Corpuscular HGB Conc 33.1 g/dl (32-36); Mean Corpuscular Volume 87.7 fl (80-100); Monocytes Absolute Auto 0.3 K/mm3 (0.1-0.6); Monocytes Percent Auto 4.6 % (2.6-8.5); Neutrophils Absolute Auto 5.5 K/mm3 (1.3-6.7); Neutrophils Percent Auto 87.1 % (45.5-73.1); Platelet Count Result 142 k/mm3 (150-375); Red Blood Count 3.24 M/mm3 (4.2-5.4); Red Cell Distribution Width 14.3 % (11.5-14.5); White Blood Count 6.3 K/mm3 (4.5-10.0)
[2021-01-23] MEDS: HYDROcodone/acetaminophen (*CRX) 5-325 MG TABLET PO ×2 (14:51→20:34)
[2021-01-24] VITALS (11 sets, daily range): BP systolic 108–123; BP diastolic 66–80; PULSE 77–101; RESP 14–20; TEMP 36.1–37.3; O2SAT 97–100
[2021-01-24] MEDS: SODIUM CHLORIDE 0.9% IV 1,000 ML 125 ML IV CONT ×2 (02:11→15:34)
[2021-01-24] MEDS: metroNIDAZOLE 500 MG/ISO 100ML 500 MG/100 ML BAG 100 MG IVPB ×4 (02:45→20:42)
[2021-01-24] MEDS: HYDROcodone/acetaminophen (*CRX) 5-325 MG TABLET PO ×2 (02:46→17:34)
[2021-01-24 06:52] LABS: Basophils Percent Auto 0.5 % (0.2-1.2); Eosinophils Absolute Auto 0.1 K/mm3 (0-0.3); Eosinophils Percent Auto 1.1 % (0-4.4); Hematocrit 27.7 % (37.0-47.0); Hemoglobin 8.9 g/dL (12.0-15.0); Immature Granulocyte Absolute 0.03 K/mm3 (0.00-0.031); Immature Granulocyte Percent A 0.5 % (0-0.5); Lymphocytes Percent Auto 6.4 % (18.3-44.2); Mean Corpuscular HGB Conc 32.1 g/dl (32-36); Mean Corpuscular Hemoglobin 28.5 pg (26-34); Mean Corpuscular Volume 88.8 fl (80-100); Mean Platelet Volume 9.8 fl (7.4-10.4); Monocytes Absolute Auto 0.3 K/mm3 (0.1-0.6); Monocytes Percent Auto 5.4 % (2.6-8.5); Neutrophils Absolute Auto 5.4 K/mm3 (1.3-6.7); Neutrophils Percent Auto 86.1 % (45.5-73.1); Platelet Count Result 157 k/mm3 (150-375); Red Blood Count 3.12 M/mm3 (4.2-5.4); Red Cell Distribution Width 14.5 % (11.5-14.5); White Blood Count 6.3 K/mm3 (4.5-10.0)
[2021-01-24 07:19] LABS: Anion Gap 5 mmol/L (8-16); Blood Urea Nitrogen 12 mg/dL (7-17); Calcium 8.3 mg/dL (8.4-10.2); Carbon Dioxide 26 mmol/L (22-30); Chloride 105 mmol/L (98-107); Estimated CRCL calculation 126 ml/min; Estimated Glomerular Filt Rate > 60; Glucose 93 mg/dL (65-110); Potassium 3.6 mmol/L (3.4-5.0); Sodium 136 mmol/L (137-145)
--- NOTE | 2021-01-24 08:22 | PM.GYNPNOP ---
LEAD FRONT END DEVELOPER - A/P Assessment and plan (1) Post-operative infection: Code(s): T81.40XA - Infection following a procedure, unspecified, initial encounter Status: Acute (2) Sepsis: Code(s): A41.9 - Sepsis, unspecified organism Status: Acute (3) Nausea and vomiting: Code(s): R11.2 - Nausea with vomiting, unspecified Status: Acute Assessment and Plan: Continued nausea vomiting, abdominal tenderness, worsening of pain today. Continued vaginal discharge. Two examine under anesthesia. She understands the risks, benefits, and alternatives. Possible drain placement it is at the vaginal cuff. Postoperative Procedures: Procedures Operation Date: 01/24/21 14:00 <No data on this case meets the specified criteria> Time Spent With Patient Time: Total time spent is greater than 50% in coordination of care (as documented) at patient's floor/unit and/or counseling patient: Time with patient: 15 - 25 minutes LEAD FRONT END DEVELOPER- PN:Мария Post-Op Subjective Date/time seen: 01/24/21 08:22 Worsening nausea, elevated body temp. Vomiting. Exam Const: General: healthy appearing, comfortable and no acute distress Resp: Auscultation: clear to auscultation bilaterally, no rales, no rhonchi and no wheezes Cardio: Rate: regular rate Heart sounds: no click, no murmurs and no rubs GI: Inspection: non-distended GI Palp: Yes abdominal tenderness Auscultation: normal bowel sounds Extrem: General: normal to inspection, no pedal edema and no calf tenderness LEAD FRONT END DEVELOPER - PN: Obj Data Vital Signs Vital Signs: Vital Signs - 24 hr 01/23/21 15:05 01/23/21 18:23 01/23/21 18:28 Temperature 99.8 F H 100.3 F H 100.4 F H Pulse Rate 92 102 H Respiratory Rate 20 20 Blood Pressure 123/78 122/75 Pulse Oximetry 100 97 01/23/21 18:50 01/23/21 20:35 01/24/21 05:51 Temperature 98.4 F 98.8 F Pulse Rate 102 H 80 Respiratory Rate 20 16 Blood Pressure 113/70 Pulse Oximetry 97 99 Intake/Output Intake/Output: Intake & Output 01/22/21 01/23/21 01/23/21 01/24/21 00:59 00:59 23:59 23:59 Intake Total 200 Output Total 1 Balance 199 Meds/Results Medications: Active Medications Generic Name Dose Route Start Last Admin Trade Name Freq PRN Reason Stop Dose Admin Hydrocodone Bitart/Acetaminophen 1 - 2 tab 01/23/21 14:39 01/24/21 02:46 Hydrocodone/Acetaminophen (*Crx) 5-325 Mg Tablet PO 2 tab Q6H PRN Administration Pain Rated 4-6 Piperacillin/Tazobactam/Dextrose 3.375 gm in 50 mls @ 100 mls/hr 01/23/21 08:00 01/24/21 08:18 Zosyn 3.375 Gm/D5w 50ml Pm IVPB 100 mls/hr Q6H EDWARD Administration Metronidazole 500 mg in 100 mls @ 100 mls/hr 01/23/21 08:00 01/24/21 02:45 Flagyl 500 Mg/Iso Soln 100 Ml IVPB 100 mls/hr Q6H EDWARD Administration Sodium Chloride 1,000 mls @ 125 mls/hr 01/23/21 01:55 UPWARD BOUND DIRECTOR 01/24/21 02:11 Normal Saline Iv IV CONT 125 mls/hr .Q8H EDWARD Administration Ondansetron HCl 4 mg 01/24/21 08:16 Ondansetron Inj 4 Mg/2 Ml Vial IV PUSH Q4H PRN Nausea And Vomiting Radiology Results: ITS Impressions Chest X-Ray 01/23/21 09:13 IMPRESSION: 1. No acute cardiopulmonary disease. Abdomen/Pelvis CT 01/23/21 13:14 IMPRESSION: 1. Postoperative changes of recent hysterectomy with small amount of gas and stool within the vaginal vault, hyperemia in the parametrial vessels and small amount of nonloculated free fluid in the pelvis. No abscess. 2. 3.4 cm left adnexal cyst. 3. Mild intrahepatic biliary ductal dilation versus nonspecific mild periportal edema. Correlate with liver function tests. 4. Enlargement of the main and splenic veins and mild splenomegaly suggestive of portal venous hypertension. 5. Enlargement of the hepatic veins which could be due to tricuspid regurgitation, right heart failure or other cause of elevated right heart pressures. Labs CBC & Chem 7: 01/24/21 06:20 01/24/21 06:20 Labs: Lab
[2021-01-24] MEDS: fentaNYL CITRATE INJ (*CRX) 100 MCG/2 ML VIAL 50 MCG IV PUSH (09:14)
[2021-01-24] MEDS: ONDANSETRON INJ 4 MG/2 ML VIAL IV PUSH (09:14)
[2021-01-24] MEDS: LACTATED RINGERS 1,000 ML 30 ML IV CONT ×2 (13:20→14:23)
--- NOTE | 2021-01-24 13:21 | WPDANESEPPF ---
Anes - Initial Pre Proc Eval Procedure: Operation Date: 01/24/21 14:00 Proposed Procedures p Vaginal Exam Under Anethesia - Camilo Dodson MD Date/Time: 01/24/21 13:21 Surgeon: Camilo Dodson MD Pre Op Diagnosis: sepsis, postoperative infection Patient Data Age: 35 Gender: F Height: 1.75 m Weight: 61.36 kg Last Vital Signs Temp 37.1 C 01/24/21 05:51 Pulse 80 01/24/21 05:51 Resp 16 01/24/21 05:51 BP 113/70 01/24/21 05:51 Pulse Ox 99 01/24/21 05:51 Allergies Allergy/AdvReac Type Severity Reaction Status Date / Time amoxicillin Allergy Severe Diarrhea Verified 01/22/21 23:23 Home Medications Medication Instructions Recorded Confirmed Type amitriptyline 25 mg PO HS 04/11/20 01/23/21 History clonazepam [Klonopin] 0.5 mg PO BID PRN 04/11/20 01/23/21 History magnesium 400 mg PO DAILY 04/11/20 01/23/21 History meloxicam 15 mg PO DAILY 04/11/20 01/23/21 History metoprolol succinate 25 mg PO DAILY 04/11/20 01/23/21 History albuterol sulfate 2 puff INHALATION Q6H PRN 09/24/20 01/23/21 History azelastine 137 mcg INTRANASAL HS 01/04/21 01/23/21 History fluticasone propionate 50 mcg INTRANASAL HS 01/04/21 01/23/21 History hydrocodone-acetaminophen 1 tablet PO Q4H PRN 01/23/21 01/23/21 History Laboratory Tests 01/23/21 01/24/21 01/24/21 13:01 06:20 06:20 WBC 6.3 K/mm3 K/mm3 6.3 K/mm3 K/mm3 (4.5-10.0) (4.5-10.0) RBC 3.24 M/mm3 L M/mm3 3.12 M/mm3 L M/mm3 (4.2-5.4) (4.2-5.4) Hgb 9.4 g/dL L g/dL 8.9 g/dL L g/dL (12.0-15.0) (12.0-15.0) Hct 28.4 % L % 27.7 % L % (37.0-47.0) (37.0-47.0) MCV 87.7 fl fl 88.8 fl fl (80-100) (80-100) MCH 29.0 pg pg 28.5 pg pg (26-34) (26-34) MCHC 33.1 g/dl g/dl 32.1 g/dl g/dl (32-36) (32-36) RDW 14.3 % % 14.5 % % (11.5-14.5) (11.5-14.5) Plt Count 142 k/mm3 L k/mm3 157 k/mm3 k/mm3 (150-375) (150-375) MPV 9.0 fl fl 9.8 fl fl (7.4-10.4) (7.4-10.4) Immature Gran % (Auto) 0.3 % % 0.5 % % (0-0.5) (0-0.5) Neut % (Auto) 87.1 % H % 86.1 % H % (45.5-73.1) (45.5-73.1) Lymph % (Auto) 6.9 % L % 6.4 % L % (18.3-44.2) (18.3-44.2) [place] % (Auto) 4.6 % % 5.4 % % (2.6-8.5) (2.6-8.5) Eos % (Auto) 0.6 % % 1.1 % % (0-4.4) (0-4.4) Baso % (Auto) 0.5 % % 0.5 % % (0.2-1.2) (0.2-1.2) Lymph # (Auto) 0.44 K/mm3 L K/mm3 0.40 K/mm3 L K/mm3 (0.9-3.2) (0.9-3.2) [place] # (Auto) 0.3 K/mm3 K/mm3 0.3 K/mm3 K/mm3 (0.1-0.6) (0.1-0.6) Eos # (Auto) 0.0 K/mm3 K/mm3 0.1 K/mm3 K/mm3 (0-0.3) (0-0.3) Baso # (Auto) 0.0 K/mm3 K/mm3 0.0 K/mm3 K/mm3 (0.0-0.1) (0.0-0.1) Abs Immat Gran (auto) 0.02 K/mm3 K/mm3 0.03 K/mm3 K/mm3 (0.00-0.031) (0.00-0.031) Absolute Neuts (auto) 5.5 K/mm3 K/mm3 5.4 K/mm3 K/mm3 (1.3-6.7) (1.3-6.7) Absolute Nucleated RBC 0.0 K/mm3 K/mm3 0.0 K/mm3 K/mm3 (0.0-0.012) (0.0-0.012) Nucleated RBC % 0.0 % % 0.0 % % (0.0-0.2) (0.0-0.2) Sodium 136 mmol/L L mmol/L (137-145) Potassium 3.6 mmol/L mmol/L (3.4-5.0) Chloride 105 mmol/L mmol/L (98-107) Carbon Dioxide 26 mmol/L mmol/L (22-30) Anion Gap 5 mmol/L L mmol/L (8-16) BUN 12 mg/dL D mg/dL (7-17) Creatinine 0.50 mg/dL L mg/dL (0.7-1.0) Estim Creat Clear Calc 126 ml/min ml/min Estimated GFR > 60 (59 - ) Glucose 93 mg/dL mg/dL (65-110) Calcium 8.3 mg/dL L mg/dL (8.4-10.2) Patient hx anesthesia problems: none Family hx anesthesia problems: none Results Review: All pre-operative results and documents have been reviewed as part of the pre-operative evaluation. [facility] Past Medical History Medical History Anxiety Corpus luteum cyst of right ovary Depression Depression with anxiety EDS (Enoch-Danlos syndro
--- NOTE | 2021-01-24 13:25 | WPDHPUPDATE1 ---
History and Physical Update Update Date/Time: 01/24/21 13:25 History and Physical has been reviewed, including an updated exam of the patient. There are NO changes in the patient's condition. Risks, benefits, and alternatives have been discussed and questions answered. Patient agrees to proceed with procedure.
--- NOTE | 2021-01-24 14:21 | W.PM.PROC2 ---
Procedure Note - Detailed Date of Procedure 01/24/21 Pre-op Diagnosis sepsis, postoperative infection Post-op Diagnosis same (Vaginal cuff abscess) Procedure Performed Exam under anesthesia, incision and drainage of vaginal cuff abscess with drain placement. Surgeon Camilo Dodson MD Anesthesia MAC Indications Fever, pelvic pain, vaginal discharge Findings Copious P[place]ater from a gap in the vaginal cuff incision. The gap was centrally located. A drain was placed in the gap periods support sutures were placed on the bilateral aspects of the defect in the central portion of incision line. Description of Procedure The patient is taken the operating room. She was prepped and draped in the dorsal lithotomy position after induction of MAC anesthesia. A speculum was placed in the vagina. The vaginal cuff was examined. The vagina was irrigated with Betadine. Purulent fluid could be seen the egressing from the central portion of the in vaginal incision. The caudal aspect of the abscess cavity was probed with a packing forceps gently. In the drain was placed in that defect. It was sutured to the vaginal cuff with a 3-0 Vicryl. 0 Vicryl is were then used to place supporting [id number] sutures laterally to the central defect. The central defect was about a cm in length. Remainder of the vaginal cuff was bolstered transvaginally and firmly with 0 Vicryl sutures bilaterally. The procedure was then terminated. The speculum was removed. The patient tolerated procedure well. She was taken covered stable condition. Sponge lap needle counts were correct x2.. Estimated Blood Loss 5 Urine Output 1 Drains Yes (Vaginal Tonio) Packing No Pathology yes (Culture of the vaginal fluid) Complications No immediate complications Condition stable Disposition floor
[2021-01-25] MEDS: metroNIDAZOLE 500 MG/ISO 100ML 500 MG/100 ML BAG 100 MG IVPB ×2 (01:38→08:41)
[2021-01-25] MEDS: SODIUM CHLORIDE 0.9% IV 1,000 ML 125 ML IV CONT (01:39)
[2021-01-25 06:00] VITALS: BP 118/76; PULSE 68; RESP 18; TEMP 36.3; O2SAT 100
--- NOTE | 2021-01-25 07:38 | PM.GYNPNOP ---
SEMICONDUCTOR PROCESSING TECHNICIAN - A/P Assessment and plan (1) Post-operative infection: Code(s): T81.40XA - Infection following a procedure, unspecified, initial encounter Status: Acute Assessment and Plan: IV iron this am for anemia One more dose of IV zosyn and flagyl this am then home on cipro and flagyl. precautions given, discussed DC instructions drain to stay in place for now FU Dr Dodson Sunday. Postoperative Procedures: Procedures Operation Date: 01/24/21 14:00 Actual Procedure Side Surgeon p Vaginal Exam Under Anethesia with I & D of vaginal cuff abscess and abscess drain placement Not Applicable Camilo Dodson MD Postoperative day: 1 Time Spent With Patient Time: Total time spent is greater than 50% in coordination of care (as documented) at patient's floor/unit and/or counseling patient: Time with patient: 15 - 25 minutes SEMICONDUCTOR PROCESSING TECHNICIAN- PN:Subj Post-Op Subjective Date/time seen: 01/25/21 07:38 Interval history: Did well overnight. Tolerating diet, no further N/V. Feels much better. Afebrile. Anxious to go home. Drain in place, draining minimal at this point. some spotting. Pain minimal. Exam Const: General: comfortable and no acute distress GI: GI Palp: Yes Soft to palpation Auscultation: normal bowel sounds Other: nontender, no rebound or guarding Extrem: General: normal to inspection, no pedal edema and no calf tenderness Psych: Affect: normal affect SEMICONDUCTOR PROCESSING TECHNICIAN - PN: Obj Data Vital Signs Vital Signs: Vital Signs - 24 hr 01/24/21 13:15 01/24/21 14:23 01/24/21 14:35 Temperature 98.6 F 97.0 F L Pulse Rate 92 88 79 Respiratory Rate 18 14 14 Blood Pressure 123/78 108/68 116/78 Pulse Oximetry 100 100 100 01/24/21 14:50 01/24/21 15:05 01/24/21 15:25 Temperature 98.1 F Pulse Rate 78 82 77 Respiratory Rate 16 14 20 Blood Pressure 120/80 119/77 119/66 Pulse Oximetry 97 98 99 01/24/21 15:40 01/24/21 16:10 01/24/21 17:10 Temperature 97.7 F 99.2 F 99 F Pulse Rate 83 83 101 H Respiratory Rate 16 17 18 Blood Pressure 122/72 120/70 118/70 Pulse Oximetry 100 100 99 01/24/21 20:00 01/25/21 06:00 Temperature 97.9 F 97.4 F L Pulse Rate 88 68 Respiratory Rate 19 18 Blood Pressure 119/77 118/76 Pulse Oximetry 99 100 Intake/Output Intake/Output: Intake & Output 01/23/21 01/23/21 01/24/21 01/25/21 00:59 23:59 23:59 23:59 Intake Total 3070 350 Output Total 802 Balance 2268 350 Meds/Results Medications: Active Medications Generic Name Dose Route Start Last Admin Trade Name Freq PRN Reason Stop Dose Admin Hydrocodone Bitart/Acetaminophen 1 - 2 tab 01/23/21 14:39 01/24/21 17:34 Hydrocodone/Acetaminophen (*Crx) 5-325 Mg Tablet PO 1 tab Q6H PRN Administration Pain Rated 4-6 Fentanyl Citrate 50 mcg 01/24/21 08:24 01/24/21 09:14 Fentanyl Citrate Inj (*Crx) 100 Mcg/2 Ml Vial IV PUSH 50 mcg Q2H PRN Administration Pain Rated 7-10 Piperacillin/Tazobactam/Dextrose 3.375 gm in 50 mls @ 100 mls/hr 01/23/21 08:00 01/25/21 02:10 Zosyn 3.375 Gm/D5w 50ml Pm IVPB Infused Q6H EDWARD Infusion Metronidazole 500 mg in 100 mls @ 100 mls/hr 01/23/21 08:00 01/25/21 02:35 Flagyl 500 Mg/Iso Soln 100 Ml IVPB Infused Q6H EDWARD Infusion Sodium Chloride 1,000 mls @ 125 mls/hr 01/23/21 01:55 EMERGENCY COMMUNICATIONS OFFICER 01/25/21 01:39 Normal Saline Iv IV CONT 125 mls/hr .Q8H EDWARD Administration Ondansetron HCl 4 mg 01/24/21 08:16 01/24/21 09:14 Ondansetron Inj 4 Mg/2 Ml Vial IV PUSH 4 mg Q4H PRN Administration Nausea And Vomiting Radiology Results: ITS Impressions Chest X-Ray 01/23/21 09:13 IMPRESSION: 1. No acute cardiopulmonary disease. Abdomen/Pelvis CT 01/23/21 13:14 IMPRESSION: 1. Postoperative changes of recent hysterectomy with small amount of gas and stool within the vaginal vault, hyperemia in the parametrial vessels and small amount of nonloculated free fluid in the pelvis. No abscess. 2. 3.4 cm left adnexal cyst. 3. Mild intrahepatic b
--- NOTE | 2021-01-25 08:59 | WPDANESPN ---
Anes - Prog Note Post-Op Date/Time: 01/25/21 08:59 Cardiovascular status: normal Respiratory status: normal Airway patency: baseline Mental status: baseline Post-Op hydration status: normal Vital Signs: Last Vital Signs Temp 36.3 C L 01/25/21 06:00 Pulse 68 01/25/21 06:00 Resp 18 01/25/21 06:00 BP 118/76 01/25/21 06:00 Pulse Ox 100 01/25/21 06:00 Pain Score (VAS): 0 I/O: Intake & Output 01/24/21 01/25/21 01/25/21 23:59 07:59 15:59 Intake Total 1370 350 50 Output Total 800 Balance 570 350 50 Laboratory Tests 01/24/21 06:20 01/24/21 06:20 Microbiology 01/22/21 23:36 Blood Blood Culture - Preliminary 01/23/21 01:40 FIVE ROLL REFINER BATCH MIXER Blood Blood Culture - Preliminary Post-procedural complaints: none Patient Feedback: Patient satisfied with anesthetic care.
--- NOTE | 2021-01-26 10:12 | PC.NURSE ---
Patient called to notify that abdomen is bloated and hard above her belly button. Patient states she has a temperature of 101 and feels nauseated; cramps are so severe I can barely move . Patient states she has been unable to reach Dr. Dodson's office. Recommended to patient to return to emergency room for work up.
--- NOTE | 2021-02-04 08:12 | PM.DS ---
DS: Admitting Diagnosis Discharge Date 01/25/21 Admitting Diagnosis Nausea vomiting postop abscess, DS: Discharge Diagnosis Discharge Diagnosis (1) Abscess: Code(s): L02.91 - Cutaneous abscess, unspecified Status: Acute (2) Nausea and vomiting: Code(s): R11.2 - Nausea with vomiting, unspecified Status: Acute DS: Summary Hospital Course Hospital Course: This patient is a 35-year-old female who is readmitted for nausea and vomiting after diagnosis of pelvic abscess us. She was previously admitted for postop vaginal cuff abscess. The patient quickly got better after the abscess spontaneously drained on examination. She was discharged home and Was readmitted with nausea and vomiting. during this admission she was taken the operating room and a drain was placed in the abscess cavity. Over the course of her stay she appeared to get better. She was given IV antibiotics and pain control and Antiemetics. Status at Discharge Functional status at discharge: independent ambulation Time Spent with Patient Time attestation: Total time spent providing and/or coordinating discharge services: Time spent: Greater than 30 minutes Discharge Plan Discharge Attending physician on discharge: Laurence Figueroa Consulting providers: Ayden Cali Discharging Clinician: Laurence Figueroa Anticipated Discharge Date/Time: 01/25/21 11:00 Patient Disposition: Home, Self-Care Activity: may shower and pelvic rest Diet: regular Patient Instructions: Antibiotic Form, How to Stop Smoking (DC), Tonio Drain (DC) Stand Alone Forms: General Discharge Information Follow-up/Referrals: Camilo Dodson MD [Physician] - (3 days) Discharge Medications: New doxycycline hyclate 100 mg capsule 100 mg PO DAILY 14 Days Qty: 14 RF: 0 Continued meloxicam 15 mg tablet 15 mg PO DAILY RF: 0 Hold Instructions: Resume on 04/17/20. Ok to resume this on Sat. amitriptyline 10 mg tablet 25 mg PO HS RF: 0 metoprolol succinate 25 mg tablet extended release 24 hr 25 mg PO DAILY RF: 0 clonazepam [Klonopin] 0.5 mg tablet 0.5 mg PO BID PRN (Reason: anxiety) RF: 0 magnesium 400 mg PO DAILY RF: 0 albuterol sulfate 90 mcg/actuation HFA aerosol inhaler 2 puff INHALATION Q6H PRN (Reason: Shortness Of Breath) RF: 0 azelastine 137 mcg (0.1 %) aerosol,spray 137 mcg INTRANASAL BID RF: 0 fluticasone propionate 50 mcg/actuation spray,suspension 50 mcg INTRANASAL HS RF: 0 hydrocodone-acetaminophen 5-325 mg tablet 1 tablet PO Q6H PRN (Reason: pain) RF: 0 No Action venlafaxine 37.5 mg capsule,extended release 24hr 37.5 mg PO DAILY RF: 0 trazodone 100 mg tablet 100 mg PO HS RF: 0 pramipexole 0.125 mg tablet 0.125 mg PO HS RF: 0 diphenhydramine-acetaminophen [Acetaminophen PM] 25-500 mg Tablet 2 tablet PO HS RF: 0 hydrocortisone 1 % cream with perineal applicator 1 applic RECTAL BID PRN (Reason: Hemorrhoids) RF: 0 metronidazole [Flagyl] 375 mg capsule 500 mg PO Q12H RF: 0 Date of admission: 01/24/21 16:11 Primary Care Provider: Trent,Tereza Wilkins Admitting Provider: Camilo Dodson Attending physician on admission: Laurence Figueroa Condition: Stable
== END 2021-01-25 12:20 | disposition home or self-care (01) | DRG 711 ==
LOC: ANHED 01-23 02:39 → ANH3MEDSUR 01-23 02:48
PROVIDERS: Admitting Provider Obstetrics & Gynecology; Emergency Provider Emergency Medicine; PCP Internal Medicine; Visit Provider Obstetrics & Gynecology
PROC: 0U9G70Z Drainage of Vagina with Drainage Device, Via Natural or Artificial Opening (ICD-10-PCS; principal; 2021-01-24 14:00)
DX: T81.43XA Infection following a procedure, organ and space surgical site, initial encounter (principal); T81.44XA Sepsis following a procedure, initial encounter; N76.0 Acute vaginitis; F32.A Depression, unspecified; G47.33 Obstructive sleep apnea (adult) (pediatric); D64.9 Anemia, unspecified; Q79.60 Ehlers-Danlos syndrome, unspecified; Z87.442 Personal history of urinary calculi; Z90.49 Acquired absence of other specified parts of digestive tract
CPT/HCPCS: 36415; 71045; 74177; 80048; 80053; 81001; 83605; 85025; 85610; 85730; 87040; 87070; 87075; 87205; 87491; 87591; 87808; 96361; 96365; 96366; 96367; 96375; 96376; 99285; A9270; G0378; G0379; J0131; J0330; J1100; J1200; J1756; J2250; J2270; J2405; J2543; J2704; J3010; J7030; J7120; Q9967

== ENCOUNTER 2021-01-26 10:49 | Inpatient (IN) | payer OTHER, SELFPAY ==
[2021-01-26] VITALS (13 sets, daily range): BP systolic 114–124; BP diastolic 65–79; PULSE 74–89; RESP 16–18; TEMP 36.4–37.7; O2SAT 99–100
--- NOTE | ~2021-01-26 | CT_ITS ---
EXAMINATION: CT abdomen pelvis w con INDICATION: Abdominal pain and bloating after hysterectomy TECHNIQUE: Computed tomographic images of the abdomen and pelvis were obtained after the administrati on of 100 cc of Omnipaque 350 intravenous contrast. The dose-length product (DLP) was 319.39 mGy-cm. Automated exposure control and iterative reconstruction technique were employed. COMPARISON: 01/23/2021 FINDINGS: Minimal dependent atelectasis is present in the lung bases. The heart size is normal. There are small pleural effusions. The liver, spleen, pancreas, gallbladder, and adrenal glands are normal . The kidneys are unremarkable. There is a moderate to large volume of abdominal and pelvic ascites. There is a [place] drain in the vagina. There is an approximately 2.8 x 2.7 cm rim-enhancing fluid co llection contiguous with the vaginal vault. There is a 5.3 x 4.2 cm cystic area in the left adnexa wh ich demonstrates increase in size. There is an approximately 4.8 x 1.8 cm rim-enhancing fluid collect ion to the right of the rectum. A 5.5 x 4.0 cm left pelvic fluid collection could reflect ascites or abscess. There is no free intraperitoneal gas or evidence of bowel obstruction. No pathologically enl arged abdominal or pelvic lymph nodes are identified. IMPRESSION: 1. Pelvic abscess is adjacent to and contiguous with the vaginal vault. An enlarging left adnexal flu id collection and perirectal fluid collections are also concerning for abscesses. 2. Large volume of abdominal and pelvic ascites. Reviewed, dictated and finalized at location B. TED CIRCUIT PHOTOGRAPHER IMPRESSION: 1. Pelvic abscess is adjacent to and contiguous with the vaginal vault. An enla rging left adnexal fluid collection and perirectal fluid collections are also c oncerning for abscesses. 2. Large volume of abdominal and pelvic ascites.
--- NOTE | ~2021-01-26 | CT_ITS ---
EXAMINATION: 1. CT guided aspiration 2. CT abscess cyst asp w imaging DATE: 01/27/2021 13:02 INDICATION: Pelvic abscess and ascites. TECHNIQUE: The procedure including the risks, benefits, and alternatives was discussed with the patie nt. Risks discussed included bleeding and infection. The patient understood the risks and benefits an d agreed to proceed. The patient was confirmed to be receiving appropriate antibiotic coverage. The skin overlying the abdomen was prepped and draped in usual sterile fashion. Anesthetic was administe red with 1% lidocaine subcutaneously. A 5 Ugandan catheter was inserted into the ascites in the right paracolic gutter with CT guidance. Fluid was aspirated. An 18-gauge trochar needle and then a 5 Ugandan catheter were inserted under CT guidance into the 5.3 x 4.4 cm left adnexal cystic mass. Fluid was aspirated. Iterative reconstruction dose-reduction techn ique was applied. The dose-length product was 309 mGy-cm. There were no immediate complications. FINDINGS: CT images demonstrate the catheter within the ascites in right paracolic gutter. CT images demonstrate the catheter in the left adnexal cystic mass. IMPRESSION: 1. CT-guided paracentesis from the right paracolic gutter yielding less than 20 mL yellow fluid, whic h was sent for aerobic and anaerobic cultures.. 2. CT-guided drainage of a 5.3 cm left adnexal cystic mass yielding 18 mL clear, yellow fluid, which was sent for aerobic and anaerobic cultures. Given the appearance of the fluid, this may be a follicu lar cyst of the ovary. I elected not to leave in a drain. Before the procedure, the patient described her pain as worst in the left abdomen, and after the procedure the patient reported that that pain w as gone. Reviewed, dictated and finalized at location A. NED GLASS PAINTER IMPRESSION: 1. CT-guided paracentesis from the right paracolic gutter yielding less than 20 mL yellow fluid, which was sent for aerobic and anaerobic cultures.. 2. CT-guided drainage of a 5.3 cm left adnexal cystic mass yielding 18 mL clear , yellow fluid, which was sent for aerobic and anaerobic cultures. Given the ap pearance of the fluid, this may be a follicular cyst of the ovary. I elected no t to leave in a drain. Before the procedure, the patient described her pain as worst in the left abdomen, and after the procedure the patient reported that th at pain was gone.
[2021-01-26 11:35] LABS: Basophils Percent Auto 0.5 % (0.2-1.2); Eosinophils Absolute Auto 0.1 K/mm3 (0-0.3); Hematocrit 31.4 % (37.0-47.0); Hemoglobin 10.1 g/dL (12.0-15.0); Immature Granulocyte Absolute 0.06 K/mm3 (0.00-0.031); Lymphocytes Absolute Auto 0.64 K/mm3 (0.9-3.2); Lymphocytes Percent Auto 10.6 % (18.3-44.2); Mean Corpuscular HGB Conc 32.2 g/dl (32-36); Mean Corpuscular Hemoglobin 28.2 pg (26-34); Mean Corpuscular Volume 87.7 fl (80-100); Monocytes Absolute Auto 0.5 K/mm3 (0.1-0.6); Monocytes Percent Auto 8.6 % (2.6-8.5); Neutrophils Absolute Auto 4.7 K/mm3 (1.3-6.7); Neutrophils Percent Auto 78.3 % (45.5-73.1); Platelet Count Result 274 k/mm3 (150-375); Red Blood Count 3.58 M/mm3 (4.2-5.4); Red Cell Distribution Width 14.7 % (11.5-14.5)
[2021-01-26 11:46] LABS: Alanine Aminotransferase 9 U/L (4-35); Albumin Level 3.3 g/dL (3.5-5.1); Alkaline Phosphatase 58 U/L (38-126); Anion Gap 4 mmol/L (8-16); Aspartate Amino Transferase 16 U/L (14-36); Bilirubin,Total 0.4 mg/dL (0.2-1.3); Blood Urea Nitrogen 9 mg/dL (7-17); Calcium 8.7 mg/dL (8.4-10.2); Carbon Dioxide 31 mmol/L (22-30); Chloride 106 mmol/L (98-107); Estimated CRCL calculation 107 ml/min; Estimated Glomerular Filt Rate > 60; Glucose 101 mg/dL (65-110); Lipase 45 U/L (23-300); Sodium 141 mmol/L (137-145)
[2021-01-26 12:07] LABS: Add Urine Microscopic? YES; Appearance Urine Cloudy (Clear); Bilirubin Urine Negative (Negative); Blood Urine 1+ (Negative); Color Urine Yellow (Yellow); Glucose Urine UA Negative (Negative); Ketones Urine Trace mg/dL (Negative); Leukocyte Esterase Ur Trace LEU/UL (Negative); Mucus Urine Few /lpf; Nitrate Urine Negative (Negative); Protein Urine Negative (Negative); Specific Grav Ur 1.018 (1.001-1.035); Squamous Epithelial Cell Urine Many /hpf (Few); Urobilinogen Urine Negative mg/dL (<2.0)
[2021-01-26 13:17] LABS: Lactic Acid Reflex 0.8 mmol/L (0.7-2.1)
[2021-01-26] MEDS: SODIUM CHLORIDE 0.9% IV 1,000 ML 999 ML IV CONT (13:18)
--- NOTE | 2021-01-26 13:51 | ED.ABDPAIN ---
HPI - Abdominal Pain General Chief Complaint: Abdominal Pain Stated Complaint: bloating, cramping, fever Time Seen by Provider: 01/26/21 12:37 Source: patient History of Present Illness HPI narrative: Patient presents with abdominal pain. Patient reports she recently had a hysterectomy was readmitted for complications of fluid collection and had a drain placed. She was discharged home couple days ago since then she has had increasing pain and developed a fever this morning she contacted her surgeon who referred to the ER for further evaluation. Patient's pain is achy, constant, primarily in her lower abdomen and pelvis, no radiation, worse with any sort of movement of the body. She does report fevers and nausea denies any chest pain or shortness of breath Related Data Home Medications Medication Instructions Recorded Confirmed amitriptyline 25 mg PO HS 04/11/20 01/23/21 clonazepam [Klonopin] 0.5 mg PO BID PRN 04/11/20 01/23/21 magnesium 400 mg PO DAILY 04/11/20 01/23/21 meloxicam 15 mg PO DAILY 04/11/20 01/23/21 metoprolol succinate 25 mg PO DAILY 04/11/20 01/23/21 albuterol sulfate 2 puff INHALATION Q6H PRN 09/24/20 01/23/21 azelastine 137 mcg INTRANASAL HS 01/04/21 01/23/21 fluticasone propionate 50 mcg INTRANASAL HS 01/04/21 01/23/21 hydrocodone-acetaminophen 1 tablet PO Q4H PRN 01/23/21 01/23/21 Allergies Allergy/AdvReac Type Severity Reaction Status Date / Time amoxicillin Allergy Severe Diarrhea Verified 01/26/21 16:44 Review of Systems Review of Systems: CONSTITUTIONAL: Reports fevers EYES: Denies visual changes, redness, or discharge. ENT: Denies rhinorrhea, congestion, sore throat, or otalgia. CARDIOVASCULAR: Denies chest pain, palpitations, or edema. RESPIRATORY: Denies cough or dyspnea. GASTROINTESTINAL: Reports abdominal pain and nausea GENITOURINARY: Denies dysuria or hematuria. SKIN: Denies rash or itching. MUSCULOSKELETAL: Denies back pain, joint pain, or myalgia. NEUROLOGIC: Denies headache, numbness, dizziness, or weakness. PSYCHIATRIC: Denies anxiety or depression. All systems reviewed & are unremarkable except as noted in HPI and below PMFSH Past Medical History Medical History Anxiety Corpus luteum cyst of right ovary Depression Depression with anxiety EDS (Enoch-Danlos syndrome) External hemorrhoid, bleeding History of kidney stones DANK (obstructive sleep apnea) Singh disease Surgical History Surgical History History of tonsillectomy History of tubal ligation Laparoscopic History of wisdom tooth extraction S/P laparoscopic appendectomy Family History Family History Mother Ovarian cancer Hyperlipidemia Gallbladder disease Father Hyperlipidemia Malignant neoplasm of prostate Hypertension Social History Social History Social History: The patient lives at home with her boyfriend and 6 children. She is a stay at home mother. She would like her mother, Josie Bonilla, to be her medical decision maker if needed. Smoking status: Never smoker Tobacco type: e-cigarettes/vaping Second hand tobacco smoke exposure: Yes Alcohol intake: never Drinks per week: 1 Alcohol use details: RARE Substance use: current Substance use type: marijuana Other substance usage details: SMOKE AND EDIBLES Last use: 12/28/20 Gender identity (if verbalized by the patient): Female Sexual Orientation (if Verbalized by the Patient): Straight or Heterosexual Spiritual care concerns: No Exam Narrative: GENERAL: Well-appearing, well-nourished, and in no acute distress. HEAD: Normocephalic, atraumatic. EYES: PERRLA and EOMI. ENT: Nares clear, no rhinorrhea or epistaxis. Mucous membranes moist. NECK: Supple. No masses. No JVD CHEST: Clear to auscultation. No respir
[2021-01-26] MEDS: metroNIDAZOLE 500 MG/ISO 100ML 500 MG/100 ML BAG 100 MG IVPB ×2 (13:56→22:48)
[2021-01-26] MEDS: MORPHINE SULFATE (*CRX) 4 MG/ML INJ IV PUSH ×6 (13:56→22:50)
[2021-01-26] MEDS: ONDANSETRON INJ 4 MG/2 ML VIAL IV PUSH (15:24)
[2021-01-26] MEDS: SODIUM CHLORIDE 0.9% IV 1,000 ML 125 ML IV CONT (15:55)
--- NOTE | 2021-01-26 16:49 | ADMGEN ---
This patient, Berna Bonilla, was admitted to Medical Room 346-. Patient/family oriented to hospital policies and general routines including ID bracelet, bed and alarms, visiting hours, pain management, procedures, bathroom and other care routines, personal items, smoking policy, room service/diet, and visiting hours. Information on how to activate the Rapid Response Team has been discussed. Patient/Family are encouraged to report perceived risks to care and to ask questions if they do not understand what they are told or what they should do.
[2021-01-27] MEDS: MORPHINE SULFATE (*CRX) 4 MG/ML INJ IV PUSH ×3 (01:35→19:34)
[2021-01-27] MEDS: SODIUM CHLORIDE 0.9% IV 1,000 ML 125 ML IV CONT ×2 (03:17→15:09)
[2021-01-27 04:52] VITALS: BP 107/69; PULSE 73; RESP 18; TEMP 36.8; O2SAT 99
[2021-01-27] MEDS: metroNIDAZOLE 500 MG/ISO 100ML 500 MG/100 ML BAG 100 MG IVPB ×3 (06:01→22:11)
--- NOTE | 2021-01-27 08:10 | PM.IMHP ---
H&P: HPI History of Present Illness Date/Time: 01/27/21 08:10 this patient is a 35-year-old female who is 3 weeks postop from a a total laparoscopic hysterectomy. Four days ago she was admitted for abdominal pain and vaginal discharge. She was found to have a vaginal cuff abscess. A drain was placed in the abscess transvaginally. No other abscesses were visualized on CT scan at that time. She returned to the hospital yesterday. She was in the emergency department. She was complaining of pain and fever. CT scan was obtained and ascites and a new abscess cavity was observed. Spoke to radiology and reviewed the images with Radiology. We have agreed to place a puppy trainer aspirate the abscess and aspirate the ascitic fluid. She will have that performed today. She denies fever, nausea, vomiting today. She denies any intense abdominal pain. She denies any vaginal discharge today. Chief Complaint: Abdominal pain Review of Systems Review of Systems: All systems reviewed & are unremarkable except as noted in HPI and below Constitutional: Constitutional: Denies chills, Denies fatigue, Denies fever(s) and Denies weakness Eyes: Eyes: Denies blurry vision, Denies change in vision, Denies loss of peripheral vision, Denies loss of vision, Denies other visual disturbances and Denies eye pain ENT: Denies vertigo, Denies dizziness, Denies hearing loss, Denies mouth pain, Denies nasal obstruction, Denies neck mass and Denies neck pain Cardiovascular: Cardiovascular: Denies chest pain, Denies diaphoresis, Denies syncope, Denies leg edema and Denies dyspnea Respiratory: Respiratory: Denies chest congestion, Denies cough, Denies hemoptysis, Denies dyspnea and Denies wheezing Gastrointestinal: Gastrointestinal: Denies abdominal pain, Denies constipation, Denies diarrhea, Denies nausea and Denies vomiting Genitourinary: Genitourinary: Denies hematuria, Denies change in libido, Denies nocturia, Denies genital lesions, Denies flank pain and Denies urinary urgency Musculoskeletal: Musculoskeletal: Denies abnormal gait, Denies back pain, Denies myalgias, Denies arthralgias, Denies joint swelling, Denies muscle weakness and Denies neck pain Integumentary/Breasts: Skin/Breast: Denies swelling, Denies breast pain, Denies breast mass, Denies dry skin, Denies nipple discharge, Denies unusual bruising and Denies jaundice Neurologic: Denies Neuro-related abnormal movements, Denies Abnormal speech present, Denies abnormal gait, Denies behavioral changes, Denies confusion, Denies vertigo, Denies dizziness, Denies syncope, Denies loss of vision, Denies memory loss, Denies convulsions and Denies weakness Psychiatric: Psychiatric: Denies abnormal sleep pattern, Denies behavioral changes, Denies change in libido, Denies confusion, Denies depression, Denies anhedonia and Denies memory loss Endocrine: Endocrine: Reports no additional endocrine complaints, Denies change in libido and Denies fatigue Hematologic/Lymphatic: Hematologic/Lymphatic: Reports no additional hematologic/lymphatic complaints Allergic/Immunologic: Allergic/Immunologic: Reports no additional allergic/immunologic complaints and Denies wheezing PMFSH Past Medical History Medical History Anxiety Corpus luteum cyst of right ovary Depression Depression with anxiety EDS (Enoch-Danlos syndrome) External hemorrhoid, bleeding History of kidney stones DANK (obstructive sleep apnea) Singh disease Surgical History Surgical History History of tonsillectomy History of tubal ligation Laparoscopic History of wisdom tooth extraction S/P laparoscopic appendectomy Family History Family History Mother Ovarian cancer Hyperlipidemia Gallbladder disease Father Hyperlipidemia Malignant neoplasm of prostate Hypertension Social History Social Histor
[2021-01-27 08:56] LABS: INR 1.3; Prothrombin Time 15.5 Seconds (11.1-14.7)
[2021-01-27] MEDS: ONDANSETRON INJ 4 MG/2 ML VIAL IV PUSH ×3 (12:57→23:52)
[2021-01-27 14:00] VITALS: BP 114/68; PULSE 83; RESP 16; TEMP 36.7; O2SAT 98
[2021-01-27 22:00] VITALS: BP 121/72; PULSE 89; RESP 18; TEMP 37.2; O2SAT 99
[2021-01-28] MEDS: MORPHINE SULFATE (*CRX) 4 MG/ML INJ IV PUSH ×4 (00:28→16:58)
[2021-01-28] MEDS: SODIUM CHLORIDE 0.9% IV 1,000 ML 125 ML IV CONT ×3 (02:20→23:37)
[2021-01-28] MEDS: metroNIDAZOLE 500 MG/ISO 100ML 500 MG/100 ML BAG 100 MG IVPB ×3 (06:34→22:20)
[2021-01-28] MEDS: ONDANSETRON INJ 4 MG/2 ML VIAL IV PUSH ×4 (06:55→23:38)
[2021-01-28 07:00] VITALS: BP 125/75; PULSE 76; RESP 16; TEMP 37.2; O2SAT 99
--- NOTE | 2021-01-28 08:32 | PM.GYNPNOP ---
ELECTRICAL SYSTEMS DESIGN ENGINEER - A/P Assessment and plan (1) Abscess: Code(s): L02.91 - Cutaneous abscess, unspecified Status: Acute (2) Pelvic pain: Code(s): R10.2 - Pelvic and perineal pain Status: Acute (3) Post-operative infection: Code(s): T81.40XA - Infection following a procedure, unspecified, initial encounter Status: Acute Assessment and Plan: This patient is a 35-year-old female who is approximately 22 days postop from total laparoscopic hysterectomy who developed a pelvic abscess. A transvaginal drain was placed in the abscess cavity. on 1st postop readmission. She was sent later returned emergency department fever and pain Other fluid collections were noted on the subsequent CT examination and a subsequent admission. These were aspirated yesterday, 1 was ascites, the other was likely a ovarian cyst. Drains were not placed. The place transvaginal drain appears to be in the correct position inside the pelvic cup abscess. She continues to have vaginal drainage through this, around this drain. She is afebrile, has normal white count, reports some nausea. Under changed her nausea medication continue IV antibiotics. She continued to be observed found discharge Will be considered on future date. Time Spent With Patient Time: Total time spent is greater than 50% in coordination of care (as documented) at patient's floor/unit and/or counseling patient: Time with patient: 15 - 25 minutes ELECTRICAL SYSTEMS DESIGN ENGINEER- PN:Мария Post-Op Subjective Date/time seen: 01/28/21 08:[address]-guided aspiration of fluid collection yesterday. Appears to have been a possible ovarian cyst. Clear yellow fluid was aspirated. Drain was placed surgically appears to be placed in the vaginal cuff abscess. his report some nausea. She denies any fevers or chills. Exam Const: General: healthy appearing, comfortable and no acute distress Resp: Auscultation: clear to auscultation bilaterally, no rales, no rhonchi and no wheezes Cardio: Rate: regular rate Heart sounds: no click, no murmurs and no rubs GI: Inspection: non-distended Auscultation: normal bowel sounds Extrem: General: normal to inspection, no pedal edema and no calf tenderness ELECTRICAL SYSTEMS DESIGN ENGINEER - PN: Obj Data Vital Signs Vital Signs: Vital Signs - 24 hr 01/27/21 14:00 01/27/21 22:00 01/28/21 07:00 Temperature 98.0 F 98.9 F 98.9 F Pulse Rate 83 89 76 Respiratory Rate 16 18 16 Blood Pressure 114/68 121/72 125/75 Pulse Oximetry 98 99 99 Intake/Output Intake/Output: Intake & Output 01/25/21 01/26/21 01/27/21 01/28/21 23:59 23:59 23:59 23:59 Intake Total 1400 3505 1846 Output Total 800 2000 850 Balance 600 1505 996 Meds/Results Medications: Active Medications Generic Name Dose Route Start Last Admin Trade Name Freq PRN Reason Stop Dose Admin Metronidazole 500 mg in 100 mls @ 100 mls/hr 01/26/21 22:00 01/28/21 07:33 Flagyl 500 Mg/Iso Soln 100 Ml IVPB Infused Q8H EDWARD Infusion Piperacillin/Tazobactam/Dextrose 3.375 gm in 50 mls @ 100 mls/hr 01/26/21 21:00 01/28/21 08:32 Zosyn 3.375 Gm/D5w 50ml Pm IVPB 100 mls/hr Q6H EDWARD Administration Sodium Chloride 1,000 mls @ 125 mls/hr 01/26/21 13:55 01/28/21 08:28 Normal Saline Iv IV CONT Not Given .Q8H EDWARD Morphine Sulfate 4 mg 01/26/21 13:54 01/28/21 06:55 Morphine Sulfate (*Crx) 4 Mg/Ml Inj IV PUSH 4 mg Q2H PRN Administration Pain Rated 7-10 Ondansetron HCl 4 mg 01/26/21 13:54 01/28/21 06:55 Ondansetron Inj 4 Mg/2 Ml Vial IV PUSH 4 mg Q4H PRN Administration Nausea Radiology Results: ITS Impressions Abdomen/Pelvis CT 01/26/21 13:26 IMPRESSION: 1. Pelvic abscess is adjacent to and contiguous with the vaginal vault. An enlarging left adnexal fluid collection and perirectal fluid collections are also concerning for abscesses. 2. Large volume of abdominal and pelvic ascites. Cyst Aspiration CT 01/27/21 13:42 IMPRESSION: 1. CT-guided p
[2021-01-28 14:25] VITALS: BP 127/68; PULSE 73; RESP 16; TEMP 37.2; O2SAT 100
[2021-01-28 19:58] VITALS: BP 129/67; PULSE 82; RESP 20; TEMP 37.7; O2SAT 100
[2021-01-28] MEDS: ACETAMINOPHEN 500 MG TABLET 1000 MG PO (20:18)
[2021-01-29] VITALS (7 sets, daily range): BP systolic 105–128; BP diastolic 43–73; PULSE 62–81; RESP 16–18; TEMP 36.7–37.4; O2SAT 95–100
[2021-01-29] MEDS: MORPHINE SULFATE (*CRX) 4 MG/ML INJ IV PUSH (05:01)
[2021-01-29] MEDS: ONDANSETRON INJ 4 MG/2 ML VIAL IV PUSH (05:15)
[2021-01-29] MEDS: metroNIDAZOLE 500 MG/ISO 100ML 500 MG/100 ML BAG 100 MG IVPB ×3 (05:37→22:00)
[2021-01-29] MEDS: METOCLOPRAMIDE HCL INJ 10 MG/2 ML VIAL IV PUSH ×3 (06:05→23:09)
[2021-01-29] MEDS: SODIUM CHLORIDE 0.9% IV 1,000 ML 125 ML IV CONT ×2 (08:54→17:38)
--- NOTE | 2021-01-29 09:05 | PM.GYNPNOP ---
FOREST ECONOMIST - A/P Assessment and plan (1) Pelvic pain: Code(s): R10.2 - Pelvic and perineal pain Status: Acute Assessment and Plan: will switch to norco and DC morphine after starts gen diet (2) Abscess: Code(s): L02.91 - Cutaneous abscess, unspecified Status: Acute Assessment and Plan: continue zosyn and flagyl (3) Nausea and vomiting: Code(s): R11.2 - Nausea with vomiting, unspecified Status: Acute Assessment and Plan: continue reglan and zofran (4) Candidal vulvitis: Code(s): B37.3 - Candidiasis of vulva and vagina Status: Acute Assessment and Plan: diflucan daily x2, may need another course at home Time Spent With Patient Time: Total time spent is greater than 50% in coordination of care (as documented) at patient's floor/unit and/or counseling patient: Time with patient: 15 - 25 minutes FOREST ECONOMIST- PN:Subj Post-Op Subjective Date/time seen: 01/29/21 09:05 Interval history: Pain is moderate most of the time. N/V this am at 0500 after morphine. Feels hungry, thinks because stomach was empty. Also complains of vulvar irritation. Gets yeast infections often . Exam Narrative: NAD abdomen soft, nontender, no rebound or guarding Extremities nontender, 1+ edema FOREST ECONOMIST - PN: Obj Data Vital Signs Vital Signs: Vital Signs - 24 hr 01/28/21 14:25 01/28/21 19:58 01/29/21 04:54 Temperature 98.9 F 99.8 F H 98.7 F Pulse Rate 73 82 81 Respiratory Rate 16 20 18 Blood Pressure 127/68 129/67 124/73 Pulse Oximetry 100 100 100 Intake/Output Intake/Output: Intake & Output 01/26/21 01/27/21 01/28/21 01/29/21 23:59 23:59 23:59 23:59 Intake Total 1400 3505 5110 1400 Output Total 800 2000 2750 1400 Balance 600 1505 2360 0 Meds/Results Medications: Active Medications Generic Name Dose Route Start Last Admin Trade Name Freq PRN Reason Stop Dose Admin Acetaminophen 1,000 mg 01/28/21 20:06 01/28/21 20:18 Acetaminophen 500 Mg Tablet PO 1,000 mg Q6H PRN Administration Mild Pain (1-3) or Fever Hydrocodone Bitart/Acetaminophen 1 tab 01/29/21 09:00 Hydrocodone/Acetaminophen (*Crx) 5-325 Mg Tablet PO Q4H PRN Pain Rated 4-6 Fluconazole 150 mg 01/30/21 09:00 Fluconazole 150 Mg Tablet PO 01/30/21 11:00 DAILY EDWARD Metronidazole 500 mg in 100 mls @ 100 mls/hr 01/26/21 22:00 01/29/21 06:36 Flagyl 500 Mg/Iso Soln 100 Ml IVPB Infused Q8H EDWARD Infusion Piperacillin/Tazobactam/Dextrose 3.375 gm in 50 mls @ 100 mls/hr 01/26/21 21:00 01/29/21 08:50 Zosyn 3.375 Gm/D5w 50ml Pm IVPB Infused Q6H EDWARD Infusion Sodium Chloride 1,000 mls @ 125 mls/hr 01/26/21 13:55 01/29/21 08:54 Normal Saline Iv IV CONT 125 mls/hr .Q8H EDWARD Administration Metoclopramide HCl 10 mg 01/28/21 20:05 01/29/21 06:05 Metoclopramide Hcl Inj 10 Mg/2 Ml Vial IV PUSH 10 mg Q6HR PRN Administration Nausea Morphine Sulfate 4 mg 01/26/21 13:54 01/29/21 05:01 Morphine Sulfate (*Crx) 4 Mg/Ml Inj IV PUSH 4 mg Q2H PRN Administration Pain Rated 7-10 Ondansetron HCl 4 mg 01/26/21 13:54 01/29/21 05:15 Ondansetron Inj 4 Mg/2 Ml Vial IV PUSH 4 mg Q4H PRN Administration Nausea Radiology Results: ITS Impressions Abdomen/Pelvis CT 01/26/21 13:26 IMPRESSION: 1. Pelvic abscess is adjacent to and contiguous with the vaginal vault. An enlarging left adnexal fluid collection and perirectal fluid collections are also concerning for abscesses. 2. Large volume of abdominal and pelvic ascites. Cyst Aspiration CT 01/27/21 13:[address]: [address]-guided paracentesis from the right paracolic gutter yielding less than 20 mL yellow fluid, which was sent for aerobic and anaerobic cultures.. 2. CT-guided drainage of a 5.3 cm left adnexal cystic mass yielding 18 mL clear, yellow fluid, which was sent for aerobic and anaerobic cultures. Given the appearance of the fluid, this may be a follicular cy
[2021-01-29] MEDS: HYDROcodone/acetaminophen (*CRX) 5-325 MG TABLET 1 TAB PO (13:03)
[2021-01-29] MEDS: SACCHAROMYCES BOULARDII 250 MG CAPSULE PO (20:54)
[2021-01-30] MEDS: SODIUM CHLORIDE 0.9% IV 1,000 ML 125 ML IV CONT (03:00)
[2021-01-30 05:22] VITALS: BP 129/72; PULSE 72; RESP 17; TEMP 36.9; O2SAT 100
[2021-01-30] MEDS: metroNIDAZOLE 500 MG/ISO 100ML 500 MG/100 ML BAG 100 MG IVPB (05:34)
[2021-01-30] MEDS: FLUCONAZOLE 150 MG TABLET PO (08:43)
[2021-01-30] MEDS: SACCHAROMYCES BOULARDII 250 MG CAPSULE PO (08:43)
[2021-01-30] MEDS: HYDROcodone/acetaminophen (*CRX) 5-325 MG TABLET 1 TAB PO (08:48)
--- NOTE | 2021-01-30 09:35 | PM.GYNPNOP ---
SOLICITOR PATENT - A/P Assessment and plan (1) Abscess: Code(s): L02.91 - Cutaneous abscess, unspecified Status: Acute Assessment and Plan: continue oral antibiotic course at home (already has from last hospitalization) normal WBC. drain in place may DC home FU this week Dr Dodson (2) Pelvic pain: Code(s): R10.2 - Pelvic and perineal pain Status: Acute Assessment and Plan: has oxycodone at home (3) Nausea and vomiting: Code(s): R11.2 - Nausea with vomiting, unspecified Status: Acute Assessment and Plan: vomiting resolved Time Spent With Patient Time: Total time spent is greater than 50% in coordination of care (as documented) at patient's floor/unit and/or counseling patient: Time with patient: 15 - 25 minutes SOLICITOR PATENT- PN:Мария Post-Op Subjective Date/time seen: 01/30/21 09:35 Interval history: Reports pain reasonably well controlled on oral norco. feels bloated and still intermittent nausea, but no vomiting. would like DC home. Subjective: patient desires discharge and patient is tolerating oral intake Exam Const: General: comfortable and no acute distress GI: GI Palp: Yes Soft to palpation Other: nontender, no distention, no rebound or guarding, normal bowel sounds Neuro: General: oriented to person, oriented to place and oriented to time Extrem: General: normal to inspection and no pedal edema Psych: Mental Status: mental status grossly normal Affect: normal affect SOLICITOR PATENT - PN: Obj Data Vital Signs Vital Signs: Vital Signs - 24 hr 01/29/21 10:35 01/29/21 14:00 01/29/21 19:26 Temperature 98.1 F 98.1 F Pulse Rate 65 71 Respiratory Rate 16 18 Blood Pressure 105/43 L 128/64 Pulse Oximetry 95 100 100 01/29/21 20:22 01/29/21 22:00 01/29/21 22:34 Temperature 99.3 F 98.8 F Pulse Rate 62 Respiratory Rate 18 Blood Pressure Pulse Oximetry 99 01/30/21 05:22 Temperature 98.4 F Pulse Rate 72 Respiratory Rate 17 Blood Pressure 129/72 Pulse Oximetry 100 Intake/Output Intake/Output: Intake & Output 01/27/21 01/28/21 01/29/21 01/30/21 23:59 23:59 23:59 23:59 Intake Total 3505 5110 3040 1690 Output Total 1999 2750 1400 Balance 1505 2360 1640 1690 Meds/Results Medications: Active Medications Generic Name Dose Route Start Last Admin Trade Name Freq PRN Reason Stop Dose Admin Acetaminophen 1,000 mg 01/28/21 20:06 01/28/21 20:18 Acetaminophen 500 Mg Tablet PO 1,000 mg Q6H PRN Administration Mild Pain (1-3) or Fever Hydrocodone Bitart/Acetaminophen 1 tab 01/29/21 09:00 01/30/21 08:48 Hydrocodone/Acetaminophen (*Crx) 5-325 Mg Tablet PO 1 tab Q4H PRN Administration Pain Rated 4-6 Fluconazole 150 mg 01/30/21 09:00 01/30/21 08:43 Fluconazole 150 Mg Tablet PO 01/30/21 11:00 150 mg DAILY EDWARD Administration Metronidazole 500 mg in 100 mls @ 100 mls/hr 01/26/21 22:00 01/30/21 06:35 Flagyl 500 Mg/Iso Soln 100 Ml IVPB Infused Q8H EDWARD Infusion Piperacillin/Tazobactam/Dextrose 3.375 gm in 50 mls @ 100 mls/hr 01/26/21 21:00 01/30/21 08:43 Zosyn 3.375 Gm/D5w 50ml Pm IVPB 100 mls/hr Q6H EDWARD Administration Sodium Chloride 1,000 mls @ 125 mls/hr 01/26/21 13:55 01/30/21 03:00 Normal Saline Iv IV CONT 125 mls/hr .Q8H EDWARD Administration Metoclopramide HCl 10 mg 01/28/21 20:05 01/29/21 23:09 Metoclopramide Hcl Inj 10 Mg/2 Ml Vial IV PUSH 10 mg Q6HR PRN Administration Nausea Morphine Sulfate 4 mg 01/26/21 13:54 01/29/21 05:01 Morphine Sulfate (*Crx) 4 Mg/Ml Inj IV PUSH 4 mg Q2H PRN Administration Pain Rated 7-10 Ondansetron HCl 4 mg 01/26/21 13:54 01/29/21 05:15 Ondansetron Inj 4 Mg/2 Ml Vial IV PUSH 4 mg Q4H PRN Administration Nausea Saccharomyces Boulardii 250 mg 01/29/21 17:00 01/30/21 08:43 Saccharomyces Boulardii 250 Mg Capsule PO 250 mg BID EDWARD Administration Radiology Results: ITS Impressions Abdomen/P
--- NOTE | 2021-02-24 21:21 | PM.DS ---
DS: Admitting Diagnosis Discharge Date 01/30/21 Admitting Diagnosis postoperative pain, nausea, vomiting DS: Discharge Diagnosis Discharge Diagnosis (1) Pelvic pain: Code(s): R10.2 - Pelvic and perineal pain Status: Acute (2) Post-operative infection: Code(s): T81.40XA - Infection following a procedure, unspecified, initial encounter Status: Acute (3) Nausea and vomiting: Code(s): R11.2 - Nausea with vomiting, unspecified Status: Acute DS: Summary Hospital Course Hospital Course: This patient is a 35-year-old female who is readmitted for nausea and vomiting after diagnosis of pelvic abscess us. She was previously admitted for postop vaginal cuff abscess. The patient quickly got better after the abscess spontaneously drained on examination. She was discharged home and Was readmitted with nausea and vomiting. during this admission she was taken the operating room and a drain was placed in the abscess cavity. Over the course of her stay she appeared to get better. She was given IV antibiotics and pain control and Antiemetics. Time Spent with Patient Time attestation: Total time spent providing and/or coordinating discharge services: Discharge Plan Discharge Attending physician on discharge: Laurence Figueroa Consulting providers: Eugene Samuel ; Eren Lott V. Discharging Clinician: Laurence Figueroa Anticipated Discharge Date/Time: 01/30/21 09:38 Patient Disposition: Home, Self-Care Activity: may shower, no straining and pelvic rest Diet: regular Discharge Instructions: Continue with home antibiotics that were previously prescribed. Continue full dose of antibiotics even if feeling better. Contact Dr. Dodson tomorrow 01/31 to make a follow up appointment. Your tonio drain will be removed by Dr. Dodson in his office. Continue to monitor your vaginal drainage and change favian pads as needed. Call Dr. Dodson's office or call 911 for any worsening symptoms. Patient Instructions: Antibiotic Form, Metronidazole (By mouth), Piperacillin/Tazobactam (By injection), Pain Management (DC), Abscess (GEN), Tonio Drain (DC) Stand Alone Forms: General Discharge Information Follow-up/Referrals: Camilo Dodson MD [Physician] - 1 Week Discharge Medications: Continued meloxicam 15 mg tablet 15 mg PO DAILY RF: 0 Hold Instructions: Resume on 04/17/20. Ok to resume this on Sat. amitriptyline 10 mg tablet 25 mg PO HS RF: 0 metoprolol succinate 25 mg tablet extended release 24 hr 25 mg PO DAILY RF: 0 clonazepam [Klonopin] 0.5 mg tablet 0.5 mg PO BID PRN (Reason: anxiety) RF: 0 magnesium 400 mg PO DAILY RF: 0 albuterol sulfate 90 mcg/actuation HFA aerosol inhaler 2 puff INHALATION Q6H PRN (Reason: Shortness Of Breath) RF: 0 azelastine 137 mcg (0.1 %) aerosol,spray 137 mcg INTRANASAL BID RF: 0 fluticasone propionate 50 mcg/actuation spray,suspension 50 mcg INTRANASAL HS RF: 0 hydrocodone-acetaminophen 5-325 mg tablet 1 tablet PO Q6H PRN (Reason: pain) RF: 0 doxycycline hyclate 100 mg capsule 100 mg PO DAILY 14 Days Qty: 14 RF: 0 venlafaxine 37.5 mg capsule,extended release 24hr 37.5 mg PO DAILY RF: 0 trazodone 100 mg tablet 100 mg PO HS RF: 0 pramipexole 0.125 mg tablet 0.125 mg PO HS RF: 0 diphenhydramine-acetaminophen [Acetaminophen PM] 25-500 mg Tablet 2 tablet PO HS RF: 0 hydrocortisone 1 % cream with perineal applicator 1 applic RECTAL BID PRN (Reason: Hemorrhoids) RF: 0 metronidazole [Flagyl] 375 mg capsule 500 mg PO Q12H RF: 0 Date of admission: 01/28/21 11:10 Primary Care Provider: Trent,Tereza Wilkins Admitting Provider: Camilo Dodson Attending physician on admission: Laurence Figueroa Condition: Stable
== END 2021-01-30 12:15 | disposition home or self-care (01) | DRG 711 ==
LOC: ANHED 13:51 → ANH3MED 16:11
PROVIDERS: Admitting Provider Obstetrics & Gynecology; Emergency Provider Emergency Medicine; PCP Internal Medicine; Visit Provider Obstetrics & Gynecology
DX: T81.43XA Infection following a procedure, organ and space surgical site, initial encounter (principal); N73.0 Acute parametritis and pelvic cellulitis; N83.02 Follicular cyst of left ovary; B37.3 Candidiasis of vulva and vagina; G47.33 Obstructive sleep apnea (adult) (pediatric); F41.8 Other specified anxiety disorders; Q79.60 Ehlers-Danlos syndrome, unspecified; A18.01 Tuberculosis of spine
CPT/HCPCS: 10160; 36415; 74177; 77012; 80053; 81001; 81025; 83605; 83690; 85025; 85610; 87070; 87075; 87205; 96361; 96365; 96366; 96367; 96375; 96376; 99285; A9270; C1729; G0378; G0379; J0131; J2270; J2405; J2543; J2765; J7030; Q9967

== ENCOUNTER 2021-08-19 08:54 | Outpatient (CLI) | payer OTHER, SELFPAY ==
--- NOTE | ~2021-08-19 | US_ITS ---
US breast LT complete DATE: 08/19/2021 09:56 INDICATION: Left breast pain, tenderness TECHNIQUE: Real-time imaging of left breast and left axillary area COMPARISON: 12/25/2018 bilateral diagnostic mammogram FINDINGS: There is a subcutaneous 2.8 x 2.3 x 2.9 mm cyst in the subcutaneous tissues in the left axi llary area. No suspicious mass or shadowing of the left breast or left axilla is noted. IMPRESSION: BI-RADS Category 2: Benign Recommendation: Routine mammographic screening beginning at age 40 Reviewed, dictated and finalized at [facility] Reviewed, dictated and finalized at [facility].
== END 2021-08-19 08:55 | disposition home or self-care (01) ==
PROVIDERS: PCP Internal Medicine; Visit Provider Obstetrics & Gynecology
DX: R92.8 Other abnormal and inconclusive findings on diagnostic imaging of breast (principal); N60.02 Solitary cyst of left breast
CPT/HCPCS: 76641

== ENCOUNTER 2021-11-03 08:05 | Outpatient (CLI) | payer OTHER, SELFPAY ==
--- NOTE | ~2021-11-03 | MM_ITS ---
EXAMINATION: MM screening valentin BI w melodie HISTORY: Screening mammogram TECHNIQUE: Craniocaudal and mediolateral oblique 3-D tomosynthesis images were obtained and synthetic 2-D images were generated. CAD analysis was submitted and interpreted. COMPARISON: 08/19/2008 complete left breast ultrasound 12/25/2018 bilateral diagnostic mammogram BREAST PARENCHYMAL COMPOSITION: The breasts are extremely dense, which lowers the sensitivity of mamm ography. FINDINGS: There is no evidence of suspicious mass, calcification, or architectural distortion to sugg est malignancy in either breast. There has been no suspicious interval change. IMPRESSION: 1. No mammographic evidence of malignancy. 2. Recommend routine screening mammography in one year. BI-RADS Category 1: Negative Reviewed, dictated and finalized at [facility].
== END 2021-11-03 08:06 | disposition home or self-care (01) ==
PROVIDERS: PCP Internal Medicine; Visit Provider Obstetrics & Gynecology
DX: Z12.31 Encounter for screening mammogram for malignant neoplasm of breast (principal)
CPT/HCPCS: 77063; 77067

== ENCOUNTER 2022-01-12 06:44 | Outpatient (RCR) | payer OTHER, SELFPAY | END 2022-03-28 13:48 | disposition home or self-care (01) | LOC: ANHPT 06:44 | PROVIDERS: PCP Internal Medicine | DX: R10.2 Pelvic and perineal pain (principal) | CPT/HCPCS: 99199 ==

== ENCOUNTER 2022-01-31 09:51 | Outpatient (CLI) | payer OTHER, SELFPAY ==
--- NOTE | ~2022-01-31 | MR_ITS ---
MR breast BI wo/w con 01/31/2022 15:53 FRONT DESK REPRESENTATIVE INDICATION: BRCA positive. 26.7% lifetime risk of breast cancer. TECHNIQUE: MRI of the breasts perform using standard protocol pre-and post IV contrast with the follo wing sequences: Axial T2 STIR, axial T1, axial vibrant T1 with fat suppression precontrast and multip hasic postcontrast. COMPARISON: Mammogram dated 11/03/2021 FINDINGS: Right breast: No signal abnormalities on precontrast sequences. There is mild background pa renchymal enhancement. There is a man normally enhancing mass in the upper outer quadrant of the righ t breast posteriorly measuring 2.9 cm to the nipple and 0.8 cm to the skin surface. This mass measure s 1.4 x 1.2 x 2.3 cm with irregular margins and heterogeneous enhancement. There is rapid washout enh ancement pattern. No evidence of signal abnormality in the axillary or internal mammary distributions . LEFT BREAST: No signal abnormalities on precontrast sequences. There is mild background parenchymal enhancement. No enhancing lesions following contrast administration. No areas of enhancement meeti ng threshold criteria on CAD analysis. No evidence of signal abnormalities in the axillary or inter nal mammary node distributions.] IMPRESSION: 1: Right breast: Abnormal heterogeneously enhancing 1.4 cm mass of the right breast in the upper out er quadrant posteriorly. 2: Left breast: Negative. No evidence of malignancy. Recommend follow-up diagnostic bilateral mammogram and complete bilateral breast ultrasound for corre lation. BI-RADS CATEGORY 0 - INCOMPLETE STUDY, NEED ADDITIONAL IMAGING EVALUATION. Reviewed, dictated and finalized at [facility] T DESK REPRESENTATIVE IMPRESSION: 1: Right breast: Abnormal heterogeneously enhancing 1.4 cm mass of the right b reast in the upper outer quadrant posteriorly. 2: Left breast: Negative. No evidence of malignancy. Recommend follow-up diagnostic bilateral mammogram and complete bilateral breas t ultrasound for correlation. BI-RADS CATEGORY 0 - INCOMPLETE STUDY, NEED ADDITIONAL IMAGING EVALUATION.
== END 2022-01-31 09:52 | disposition home or self-care (01) ==
PROVIDERS: PCP Internal Medicine
DX: N64.4 Mastodynia (principal); R92.2 Inconclusive mammogram; Z80.3 Family history of malignant neoplasm of breast; Z91.89 Other specified personal risk factors, not elsewhere classified
CPT/HCPCS: 77049; A9577; C8908